=== PATIENT | male | born 1940 | race Caucasian/White ===

== ENCOUNTER → 2016-11-29 | Outpatient (CLI) | payer MEDICARE ==
--- NOTE | 2016-11-29 13:57 | XR ---
EXAMINATION TYPE: XR chest 2V DATE OF EXAM: 11/29/2016 1:52 PM COMPARISON: Prior chest x-ray February 28, 2016 HISTORY: Hypercalcemia per order. TECHNIQUE: Frontal and lateral views of the chest are obtained. FINDINGS: There is no focal air space opacity, pleural effusion, or pneumothorax seen. Underlying em physematous change is not excluded. The cardiac silhouette size is stable and mildly enlarged with du al lead pacemaker and atherosclerotic thoracic aorta redemonstrated. The osseous structures are int act. IMPRESSION: Mild cardiomegaly without acute pulmonary process. No significant change from prior.
[2016-11-30 11:42] LABS: Free Kappa Lt Chain Qnt, Serum 14.03 mg/dL (0.33 - 1.94); Kappa/Lambda Light Chain Ratio 1.5 (0.26 - 1.65)
[2016-11-30 16:15] LABS: Mis test requested (Non-blood) Urine Protein Electr
== END | disposition home or self-care (01) ==
LOC: LABWHC1 13:15
PROVIDERS: ATTEND Internal Medicine
DX: I51.7 Cardiomegaly (principal); E83.52 Hypercalcemia
CPT/HCPCS: 36415; 71020; 82652; 83883; 84165; 84166; 86335

== ENCOUNTER → 2017-03-06 | Outpatient (CLI) | payer MEDICARE ==
--- NOTE | 2017-03-06 14:29 | NM ---
EXAMINATION TYPE: NM parathyroid w/spect DATE OF EXAM: 03/06/2017 1:52 PM COMPARISON: NONE HISTORY: Hypercalemia E83.52 TECHNIQUE: Following administration of 26 mCi Tc99m Sestamibi. Anterior projection images of the neck and chest were obtained 10 minutes and 3 hours post injection. SPECT images of the neck and chest were obtaine d and reconstructed in three axes. FINDINGS: Thyroid tracer washout: Delayed images demonstrate near-complete tracer washout from the thyroid. Parathyroid uptake: None. The two-hour delayed images do not demonstrate any focal abnormal persisten t uptake in the region of the parathyroid glands to suggest parathyroid adenoma. Normal uptake: There is physiological tracer uptake in the myocardium, liver, salivary glands, and th yroid gland. IMPRESSION: Normal parathyroid imaging study. No evidence for mediastinal uptake to suggest mediastinal parathyro id adenoma
== END | disposition home or self-care (01) ==
LOC: RADNMMAIN 07:10
PROVIDERS: ATTEND Internal Medicine
DX: E83.52 Hypercalcemia (principal)
CPT/HCPCS: 78071; A9500

== ENCOUNTER 2018-10-19 11:08 | Emergency (ER) | payer MEDICARE ==
[2018-10-19] MEDS ORDERED: SODIUM CHLORIDE 0.9% 1,000 ML IV STA (11:11)
[2018-10-19 11:24] VITALS: TEMP 96.9
[2018-10-19 12:07] LABS: Basophils % (A) 1 %; Eosinophils # (A) 0.2 k/uL (0-0.7); Eosinophils % (A) 3 %; HCT 32.3 % (39.0-53.0); HGB 10.6 gm/dL (13.0-17.5); Lymphocytes # (A) 1.4 k/uL (1.0-4.8); Lymphocytes % (A) 23 %; MCH 31.6 pg (25.0-35.0); MCHC 32.8 g/dL (31.0-37.0); MCV 96.2 fL (80.0-100.0); Monocytes # (A) 0.4 k/uL (0-1.0); Monocytes % (A) 7 %; Neutrophils # (A) 3.8 k/uL (1.3-7.7); Neutrophils % (A) 64 %; Platelet Count 208 k/uL (150-450); RBC 3.35 m/uL (4.30-5.90); RDW 15.1 % (11.5-15.5)
--- NOTE | 2018-10-19 12:11 | ED ---
Syncope HPI - General Chief Complaint: Fall Stated Complaint: Syncope Time Seen by Provider: 10/19/18 11:10 Source: patient, EMS, RN notes reviewed, old records reviewed Mode of arrival: EMS Limitations: physical limitation - History of Present Illness Initial Comments: This is a 77-year-old male the ER for evaluation today. Patient presents today for evaluation of syncopal event and fall. A she got up from eating breakfast after drinking some coffee also pain in the back of his neck fell forward and hit his head. Patient does have laceration above left eyebrow did have positive loss of consciousness, denies any headache chest pain abdominal pain or shortness of breath currently. Denies any hip pain or extremity pain. Patient has had multiple shows a syncope event was recently related to medication but has been persistent multiple times with no known cause MD Complaint: loss of consciousness, collapsed -: hour(s) (1) Prodromal Symptoms: lightheaded -: second(s) Witnessed: yes - by bystander Injuries Sustained Associated with Event: Face (laceration) Current Symptoms: none History: previous syncopal episode Context: standing up Treatments Prior to Arrival: none - Related Data Home Medications Medication Instructions Recorded Confirmed ALPRAZolam [Xanax] 0.5 mg PO DAILY PRN 10/19/18 10/19/18 Allopurinol [Zyloprim] 100 mg PO DAILY 10/19/18 10/19/18 Cholecalciferol (Vitamin D3) 2,000 unit PO DAILY 10/19/18 10/19/18 [Vitamin D3] Cinacalcet HCl [Sensipar] 60 mg PO DAILY 10/19/18 10/19/18 Colchicine [Colcrys] 0.6 mg PO DAILY PRN 10/19/18 10/19/18 Dicyclomine [Bentyl] 10 mg PO BID 10/19/18 10/19/18 Isosorbide Mononitrate [Isosorbide 15 mg PO DAILY 10/19/18 10/19/18 Mononitrate ER] Melatonin 5 mg PO HS PRN 10/19/18 10/19/18 Omeprazole 20 mg PO BID 10/19/18 10/19/18 Prorenal Vitamin 1 tab PO DAILY 10/19/18 10/19/18 Sevelamer [Renvela] 800 mg PO AC-TID 10/19/18 10/19/18 Sodium Bicarbonate Tab 650 mg PO DAILY 10/19/18 10/19/18 Warfarin Sodium 4 mg PO MOWEFR 10/19/18 10/19/18 Zolpidem [Ambien] 10 mg PO HS PRN 10/19/18 10/19/18 amLODIPine [Norvasc] 5 mg PO BID 10/19/18 10/19/18 hydrALAZINE HCL [Apresoline] 75 mg PO BID 10/19/18 10/19/18 Allergies Allergy/AdvReac Type Severity Reaction Status Date / Time No Known Allergies Allergy Verified 10/19/18 12:53 Review of Systems ROS Statement: Those systems with pertinent positive or pertinent negative responses have been documented in the HPI. ROS Other: All systems not noted in ROS Statement are negative. Past Medical History Past Medical History: Dialysis History of Any Multi-Drug Resistant Organisms: None Reported Past Psychological History: Anxiety Smoking Status: Never smoker Past Alcohol Use History: None Reported Past Drug Use History: None Reported General Exam Limitations: physical limitation General appearance: alert, in no apparent distress Head exam: Present: normocephalic, normal inspection. Absent: atraumatic (3 cm laceration forehear L) Eye exam: Present: normal appearance, PERRL, EOMI. Absent: scleral icterus, conjunctival injection, periorbital swelling ENT exam: Present: normal exam, mucous membranes moist Neck exam: Present: normal inspection. Absent: tenderness, meningismus, lymphadenopathy Respiratory exam: Present: normal lung sounds bilaterally. Absent: respiratory distress, wheezes, rales, rhonchi, stridor Cardiovascular Exam: Present: regular rate, normal rhythm, normal heart sounds. Absent: systolic murmur, diastolic murmur, rubs, gallop, clicks GI/Abdominal exam: Present: soft, normal bowel sounds. Absent: distended, tenderness, guarding, rebound, rigid Extremities exam: Present: normal inspection, full ROM, normal capillary refill. Absent: tenderness, pedal edema, joint swelling, calf tenderness Back exam: Present: normal inspection Neurological exam: Present: alert, oriented X3, CN II-XII intact Psychiatric exam: Present: normal affect, normal mood Skin exam: Present: warm, dry, intact, normal color. Absent: rash Course Vital Signs 10/19/18 10/19/18 11:20 15:03 Temperature 96.9 F L Pulse Rate 65 52 L Respiratory 17 18 Rate Blood Pressure 118/56 132/54 O2 Sat by Pulse 100 100 Oximetry - Reevaluation(s) Reevaluation #1: 10/19/18 16:33 Medical record is reviewed Reevaluation #2: 10/19/18 16:33 Patient remains awake and alert throughout emergency room stay no headache chest pain or shortness of breath. Reevaluation #3: 10/19/18 16:33 Patient is able to ambulate without significant difficulty Reevaluation #4: 10/19/18 16:33 Patient at length with the family, they state that this patient has had multiple episodes that are similar, at least twice prior unsure of cause, they did think was medication related at one time he stopped taking Neurontin but seems a few events or persisting EKG Findings - EKG Comments: EKG Findings:: EKG shows paced rhythm rate of 55, QRS 90, QTc 558 Medical Decision Making - Medical Decision Making 77 male the ER with syncopal event fall sustaining a laceration and no other injury noted. Medical record is reviewed. Labwork is normal CT is her normal laceration is repaired and patient is okay for discharge - Lab Data Result diagrams: 10/19/18 11:27 10/19/18 11:27 Lab Results 10/19/18 10/19/18 10/19/18 Range/Units 11:27 11:27 11:27 WBC 6.0 (3.8-10.6) k/uL RBC 3.35 L (4.30-5.90) m/uL Hgb 10.6 L (13.0-17.5) gm/dL Hct 32.3 L (39.0-53.0) % MCV 96.2 (80.0-100.0) fL MCH 31.6 (25.0-35.0) pg MCHC 32.8 (31.0-37.0) g/dL RDW 15.1 (11.5-15.5) % Plt Count 208 (150-450) k/uL Neutrophils % 64 % Lymphocytes % 23 % Monocytes % 7 % Eosinophils % 3 % Basophils % 1 % Neutrophils # 3.8 (1.3-7.7) k/uL Lymphocytes # 1.4 (1.0-4.8) k/uL Monocytes # 0.4 (0-1.0) k/uL Eosinophils # 0.2 (0-0.7) k/uL Basophils # 0.0 (0-0.2) k/uL Sodium 139 (137-145) mmol/L Potassium 4.4 (3.5-5.1) mmol/L Chloride 98 (98-107) mmol/L Carbon Dioxide 24 (22-30) mmol/L Anion Gap 17 mmol/L BUN 36 H (9-20) mg/dL Creatinine 6.49 H (0.66-1.25) mg/dL Est GFR (CKD-EPI)AfAm 9 (>60 ml/min/1.73 sqM) Est GFR (CKD-EPI)NonAf 7 (>60 ml/min/1.73 sqM) Glucose 164 H (74-99) mg/dL Calcium 8.7 (8.4-10.2) mg/dL Phosphorus 3.6 (2.5-4.5) mg/dL Magnesium 2.3 (1.6-2.3) mg/dL Total Bilirubin 0.7 (0.2-1.3) mg/dL AST 19 (17-59) U/L ALT 18 L (21-72) U/L Alkaline Phosphatase 122 (38-126) U/L Total Creatine Kinase 63 (55-170) U/L CK-MB (CK-2) 1.1 (0.0-2.4) ng/mL CK-MB (CK-2) Rel Index 1.7 Troponin I 0.045 H* (0.000-0.034) ng/mL Total Protein 7.1 (6.3-8.2) g/dL Albumin 4.2 (3.5-5.0) g/dL - Radiology Data Radiology results: report reviewed (CT brain C-spine chest and pelvis x-ray are negative for acute disease), image reviewed Disposition Clinical Impression: Fall, Syncope, Laceration of head Disposition: HOME SELF-CARE Condition: Good Instructions: Laceration (ED), Syncope (ED) Is patient prescribed a controlled substance at d/c from ED?: No Referrals: Pernell Forman MD [Primary Care Provider] - 1-2 days
[2018-10-19 12:21] LABS: Albumin 4.2 g/dL (3.5-5.0); Calcium 8.7 mg/dL (8.4-10.2); Magnesium 2.3 mg/dL (1.6-2.3); Phosphorus 3.6 mg/dL (2.5-4.5); Potassium 4.4 mmol/L (3.5-5.1); Total Bilirubin 0.7 mg/dL (0.2-1.3); Total Protein 7.1 g/dL (6.3-8.2)
[2018-10-19 12:47] LABS: Creatine Kinase MB 1.1 ng/mL (0.0-2.4)
[2018-10-19 12:59] LABS: Troponin I 0.045 ng/mL (0.000-0.034)
--- NOTE | 2018-10-19 13:40 | CT ---
EXAMINATION TYPE: CT brain alisha arias DATE OF EXAM: 10/19/2018 COMPARISON: NONE HISTORY: Fall, Lt eye swelling CT DLP: 927.7 mGycm Automated exposure control for dose reduction was used. TECHNIQUE: CT scan of the head and cervical spine are performed without contrast. FINDINGS: BRAIN: There are mild changes of sulcal prominence and ventriculomegaly, compatible with mild atrophi c change. There is mild, periventricular white matter lucency, compatible with mild, chronic ischemic change. There is no acute focal lesion, mass effect or midline shift identified. I do not see eviden ce of intracranial blood. There is soft tissue swelling in the supraorbital area on the left. Visualized portions of the paranasal sinuses and mastoids are clear. The bony calvarium is intact. IMPRESSION: 1. NO ACUTE INTRACRANIAL ABNORMALITY. 2. MILD DEGENERATIVE CHANGE. 3. SUPRAORBITAL SWELLING ON THE LEFT. CERVICAL SPINE: There are mild emphysematous changes within the lungs. Prevertebral soft tissues are normal. Vertebral body height and alignment are maintained. Atlantoaxial relationships are normal. There is degenerative disc disease throughout the cervical region with relative sparing of the C2-3 l evel. There is diffuse uncovertebral joint disease. There is mild, diffuse facet arthropathy most mar ked on the right at C5-6. There is pseudocystic change in the superior endplate of C3 and T1. There i s irregular disc space loss at C5-6. The facet changes are somewhat irregular. This may reflect infla mmatory arthritis. No discal protrusions are seen. No fractures are identified. IMPRESSION: 1. NO ACUTE OSSEOUS LESION. 2. DEGENERATIVE CHANGE AND ALSO FINDINGS SUGGESTIVE OF OLD INFLAMMATORY ARTHRITIS.
--- NOTE | 2018-10-19 13:43 | CT ---
EXAMINATION TYPE: CT facial bones wo con DATE OF EXAM: 10/19/2018 COMPARISON: None. HISTORY: Fall, Lt eye swelling CT DLP: 927.7 mGycm Automated exposure control for dose reduction was used. TECHNIQUE: CT scan of the sinuses is performed without contrast, axial images are obtained, coronal r eformatted images are also reviewed. FINDINGS: There is soft tissue swelling over the supraorbital area on the left. No orbital fracture i s seen. There is mild mucoperiosteal thickening involving the left frontal sinus. Visualized portions of the paranasal sinuses and mastoids are otherwise clear. The zygomatic arches are intact. The pterygoid plates are intact. The greenwood of the maxillary sinuses are intact. No nasal fracture is seen. IMPRESSION: 1. NO ACUTE OSSEOUS LESION. 2. LEFT SUPRAORBITAL SWELLING. 3. MILD MUCOSAL DISEASE INVOLVING THE LEFT FRONTAL SINUS.
[2018-10-19] MEDS ORDERED: MORPHINE SULFATE 4 MG/ML SYRINGE IVP PRN (14:11)
[2018-10-19 15:05] VITALS: BP 132/54; PULSE 52; RESP 18
--- NOTE | 2018-10-19 15:07 | XR ---
EXAMINATION TYPE: XR chest 1V DATE OF EXAM: 10/19/2018 COMPARISON: Prior chest x-ray 11/29/2017 HISTORY: Trauma, pain TECHNIQUE frontal view of the chest is obtained on 2 images. FINDINGS: There is no focal air space opacity, pleural effusion, or pneumothorax seen. The cardiac silhouette size is stable and enlarged. The osseous structures are intact. There are overlying card iac leads. Generator in the left pectoral region shows stable appearance, there are leads in the righ t atrium and ventricle IMPRESSION: No acute process.
--- NOTE | 2018-10-19 15:09 | XR ---
AP pelvis HISTORY: Trauma and pain Single frontal view of the pelvis is submitted. Bone mineralization, joint spaces and alignment are maintained. There are vascular calcifications wit hin the pelvis. Question artifact overlying the right L5 transverse process, correlate for overlying device. Degenerative disc changes in the visualized spine are suspected. Serpiginous calcification in the right lower quadrant may be vascular. IMPRESSION: No acute fracture is evident. Additional findings above.
== END 2018-10-19 16:30 | disposition home or self-care (01) ==
LOC: EC 11:08
DX: S01.81XA Laceration without foreign body of other part of head, initial encounter (principal); R55 Syncope and collapse; R42 Dizziness and giddiness; F41.9 Anxiety disorder, unspecified; Z79.01 Long term (current) use of anticoagulants; Z79.899 Other long term (current) drug therapy; Z99.2 Dependence on renal dialysis; W18.00XA Striking against unspecified object with subsequent fall, initial encounter; Y93.01 Activity, walking, marching and hiking; Y92.009 Unspecified place in unspecified non-institutional (private) residence as the place of occurrence of the external cause
CPT/HCPCS: 36415; 93005; 80053; 82550; 82553; 83735; 84100; 84484; 85025; 72170; 71045; 72125; 70486; 70450; 99285; 96374; 96361; J2270

== ENCOUNTER → 2018-10-22 | Outpatient (CLI) | payer MEDICARE ==
--- NOTE | 2018-10-22 13:33 | US ---
EXAMINATION TYPE: US carotid duplex BILAT DATE OF EXAM: 10/22/2018 COMPARISON: NONE CLINICAL HISTORY: R55 SYNCOPE AND COLLAPSE. Two episodes where he passed out at home EXAM MEASUREMENTS: RIGHT: Peak Systolic Velocity (PSV) cm/sec ----- Right CCA: 166.1 ----- Right ICA: 158.6 ----- Right ECA: 264.8 ICA/CCA ratio: 1.0 RIGHT: End Diastole cm/sec ----- Right CCA: 10.0 ----- Right ICA: 24.8 ----- Right ECA: 15.8 LEFT: Peak Systolic Velocity (PSV) cm/sec ----- Left CCA: 188.0 ----- Left ICA: 139.2 ----- Left ECA: 177.5 ICA/CCA ratio: 0.7 LEFT: End Diastole cm/sec ----- Left CCA: 9.1 ----- Left ICA: 18.4 ----- Left ECA: 0.0 VERTEBRALS (direction of flow): Right Vertebral: Antegrade Left Vertebral: Antegrade Rhythm: Normal Moderate amount of plaque visualized bilateral bulbs. Elevated velocities visualized right mid and di stal CCA, right distal ICA, right ECA, left prox, mid, and distal CCA, left mid ICA, left distal ICA, left bulb, left ECA. Moderate to severe peripheral plaque is seen in bilateral carotid bulbs increased peak systolic veloc ities are seen in bilateral common carotid arteries. Ratios remain within normal limits but elevated velocities noted in bilateral internal/external carotid arteries. IMPRESSION: Moderate to severe atherosclerotic change bilaterally, cannot exclude hemodynamically si gnificant stenosis. Advise further investigation with CTA of the neck. Criteria for Assigning % of Stenosis / Diameter reduction (Estimation based on the indirect measurements of the internal carotid artery velocities (ICA PSV). 1. Normal (no stenosis)=ICA PSV < 125 cm/s: ratio < 2.0: ICA EDV<40 cm/s. 2. Less than 50% stenosis=ICA PSV < 125 cm/s: ratio < 2.0: ICA EDV<40 cm/s. 3. 50 to 69% stenosis=ICA PSV of 125 to 230 cm/s: ration 2.0 ? 4.0: ICA EDV 40-100 cm/s. 4. Greater than 70% stenosis to near occlusion= ICA PSV > 230 cm/s: ratio > 4.0: ICA EDV > 100 cm/s. 5. Near occlusion= ICA PSV velocities may be low or undetectable: variable ratio and ICA EDV. 6. Total occlusion=unable to detect flow.
== END | disposition home or self-care (01) ==
LOC: RADUSWWP 11:42
PROVIDERS: ATTEND Internal Medicine Geriatric Medicine
DX: I65.23 Occlusion and stenosis of bilateral carotid arteries (principal)
CPT/HCPCS: 93880

== ENCOUNTER 2018-11-14 11:45 | Day surgery (SDC) | payer MEDICARE ==
[2018-11-07 15:10] VITALS: BMI 23.7
[~2018-11-14 11:45] MED LIST: SODIUM CHLORIDE 0.9% 1,000 ML IV SCH
[2018-11-14 12:38] VITALS: BP 153/86; PULSE 75; RESP 18; TEMP 97.9
[2018-11-14 12:57] LABS: INR 1.1 (<1.2); Prothrombin Time 11.5 sec (9.0-12.0)
--- NOTE | 2018-11-14 16:08 | P.PCN ---
Preoperative Diagnosis: Diagnosis Recurrent syncope Twelve-lead ECG shows ventricular paced rhythm, underlying atrial fibrillation Tilt table test Baseline blood pressure 132/59 mmHg Baseline heart rate is 60 beats a minute patient was tilted upright at night was 70 per protocol there was no significant change in his heart rate a blood pressure and he was laid supine at the end of the procedure Impression Ventricular paced rhythm with underlying atrial fibrillation Normal blood pressure response to upright tilting
== END 2018-11-14 14:38 | disposition home or self-care (01) ==
LOC: CATHEP 11:45
PROVIDERS: ATTEND Internal Medicine Clinical Cardiac Electrophysiology
DX: R55 Syncope and collapse (principal); I48.2 Chronic atrial fibrillation; I10 Essential (primary) hypertension; E11.22 Type 2 diabetes mellitus with diabetic chronic kidney disease; I12.0 Hypertensive chronic kidney disease with stage 5 chronic kidney disease or end stage renal disease; N18.5 Chronic kidney disease, stage 5; Z99.2 Dependence on renal dialysis; E78.5 Hyperlipidemia, unspecified; Z95.0 Presence of cardiac pacemaker; Z79.01 Long term (current) use of anticoagulants; Z79.890 Hormone replacement therapy; Z79.899 Other long term (current) drug therapy; Z88.8 Allergy status to other drugs, medicaments and biological substances
CPT/HCPCS: 82533; 84443; 85610; 93660

== ENCOUNTER → 2018-11-21 | Outpatient (CLI) | payer MEDICARE ==
--- NOTE | 2018-11-21 19:21 | CT ---
EXAMINATION TYPE: CT angio neck DATE OF EXAM: 11/21/2018 HISTORY: Carotid stenosis COMPARISON: Ultrasound 10/22/2018 CT DLP: 300 mGycm. Automated Exposure Control for Dose Reduction was Utilized. TECHNIQUE: CTA scan of the neck is performed, patient injected with 65 mL of Isovue 370, axial image s are obtained, coronal and sagittal reformatted images are reviewed. Three-D reconstructed images ar e created on an independent workstation and reviewed. FINDINGS: Hypertrophic and degenerative change of the vertebral column. Shotty adenopathy in the soft tissues of the neck bilaterally Atherosclerotic change aorta with standard three-vessel anatomy. There is atherosclerotic plaque at t he origin of the vertebral arteries bilaterally. Mild atherosclerotic plaque involving the brachiocephalic and proximal right and left subclavian pilar [place]. Right common carotid artery is widely patent there is mild atherosclerotic plaque involving the carot id bifurcation. No significant hemodynamic stenosis. There is mild atherosclerotic plaque involving the left carotid bifurcation. There is no significant hemodynamic stenosis. Common carotid arteries are patent with mild atherosclerotic plaque at its orig in. Visualized lung apices demonstrate the lungs to be clear. Apical pleural thickening noted. Subcentime ter left thyroid nodule incidentally noted multilevel facet arthropathy noted with suspected multilev el foraminal encroachment and uncovertebral joint hypertrophy. Visualized portion of the vertebral artery is patent. Left vertebral artery slightly dominant. IMPRESSION: 1. Mild atherosclerotic plaque involving the carotid bifurcation bilaterally with no significant hemo dynamic stenosis.
== END | disposition home or self-care (01) ==
LOC: RADCTMAIN 15:52
PROVIDERS: ATTEND Surgery
DX: I65.23 Occlusion and stenosis of bilateral carotid arteries (principal)
CPT/HCPCS: 82565; 84520; 70498; 36415; Q9967

== ENCOUNTER → 2019-01-16 | Outpatient (CLI) | payer OTHER, MEDICARE ==
--- NOTE | 2019-01-16 15:23 | XR ---
EXAMINATION TYPE: XR chest 2V DATE OF EXAM: 01/16/2019 COMPARISON: 10/19/2018 HISTORY: Shortness of breath TECHNIQUE: Frontal and lateral views of the chest are obtained. FINDINGS: There is interval development of a small left pleural effusion and left basilar airspace d isease. Pulmonary hyperinflation and flattening of the right hemidiaphragm relate to underlying COPD. There is partial obscuration of the previously noted enlarged cardiac mediastinal silhouette with mu ltilead left-sided cardiac device. Mild multilevel degenerative changes of the spine are noted. IMPRESSION: New small left pleural effusion and left basilar airspace disease, likely compressive at electasis although developing pneumonia with parapneumonic effusion are possible in the appropriate c linical setting.
== END | disposition home or self-care (01) ==
LOC: RADXRMAIN 14:59
PROVIDERS: ATTEND Nurse Practitioner Family
DX: J90 Pleural effusion, not elsewhere classified (principal)
CPT/HCPCS: 71046

== ENCOUNTER 2019-06-03 10:29 | Inpatient (IN) | payer MEDICARE ==
--- NOTE | 2019-06-03 11:05 | ED ---
SOB HPI - General Source: patient, RN notes reviewed Mode of arrival: wheelchair Limitations: no limitations <Rahul Cole - Last Filed: 06/03/19 14:37> <Vinicio Fodre - Last Filed: 06/03/19 14:57> - General Chief Complaint: Shortness of Breath Stated Complaint: SOB, low BP Time Seen by Provider: 06/03/19 10:39 - History of Present Illness Initial Comments: 78-year-old male presents emergency Department with chief complaint of shortness of breath. Patient states he's had increasing fatigue and shortness of breath. Patient states he was unable to barely walk down his 60 for driving back today because he became so weak and short of breath. Patient is on dialysis secondary to diabetes causing his renal failure. Patient went to dialysis yesterday which was normal for him. Patient has no history of congestive heart failure. Patient states he is approximately one year status post cardiac arrest. Patient has no history of COPD. Patient denies any fever or chills no URI symptoms. Patient states his symptoms are improved at rest (Rahul Cole) - Related Data Home Medications Medication Instructions Recorded Confirmed Omeprazole 20 mg PO DAILY 10/19/18 06/03/19 Apixaban [Eliquis] 2.5 mg PO BID 06/03/19 06/03/19 Aspirin EC [Ecotrin Low Dose] 81 mg PO DAILY 06/03/19 06/03/19 Calcium Acetate [Phoslo] 1,334 mg PO QAM 06/03/19 06/03/19 Calcium Acetate [Phoslo] 667 mg PO BID 06/03/19 06/03/19 Cinacalcet HCl [Sensipar] 60 mg PO 06/03/19 06/03/19 Fludrocortisone [Florinef] 0.05 mg PO DAILY 06/03/19 06/03/19 Metoprolol Succinate [Toprol Xl] 50 mg PO QAM 06/03/19 06/03/19 Metoprolol Succinate [Toprol Xl] 100 mg PO HS 06/03/19 06/03/19 Pravastatin Sodium [Pravachol] 20 mg PO 06/03/19 06/03/19 Renal Vitamin 1 tab PO 06/03/19 06/03/19 Allergies Allergy/AdvReac Type Severity Reaction Status Date / Time No Known Allergies Allergy Verified 06/03/19 11:03 Review of Systems ROS Other: All systems not noted in ROS Statement are negative. <DouglasRahul Gary - Last Filed: 06/03/19 14:37> ROS Other: All systems not noted in ROS Statement are negative. <Vinicio oFrde - Last Filed: 06/03/19 14:57> ROS Statement: Those systems with pertinent positive or pertinent negative responses have been documented in the HPI. Past Medical History Past Medical History: Atrial Fibrillation, Diabetes Mellitus, Dialysis, Hypertension, Renal Disease, Skin Disorder, Syncope Additional Past Medical History / Comment(s): CMP, HAS PACEMAKER. NO RX FOR DM NOW. HEMODIALYSIS VIA FISTULA, MON, WED, FRI. SKIN TEARS EASILY. 10/19/18 TO EC R/T SYNCOPAL EPISODE, INJURY/LACERATION TO HEAD. SEE DR SANDHU'S H&P. History of Any Multi-Drug Resistant Organisms: None Reported Past Surgical History: Pacemaker Additional Past Surgical History / Comment(s): 2 ABD SURGERIES R/T INJ. PACEMAKER MEDTRON[employer]. FISTULA. Past Anesthesia/Blood Transfusion Reactions: No Reported Reaction Type of Cardiac Device: Permanent Pacemaker Device Placement Date:: 10/10/12 Past Psychological History: Anxiety Smoking Status: Never smoker - Past Family History Mother Family Medical History: Cancer Father Family Medical History: Cancer <DouglasRahul Vega - Last Filed: 06/03/19 14:37> General Exam Limitations: no limitations General appearance: alert, in no apparent distress Head exam: Present: atraumatic, normocephalic, normal inspection Eye exam: Present: normal appearance, PERRL, EOMI. Absent: scleral icterus, conjunctival injection, periorbital swelling ENT exam: Present: normal exam, normal oropharynx, mucous membranes moist, TM's normal bilaterally, normal external ear exam Neck exam: Present: normal inspection, full ROM. Absent: tenderness, meningismus, lymphadenopathy Respiratory exam: Present: normal lung sounds bilaterally. Absent: respiratory distress, wheezes, rales, rhonchi, stridor Cardiovascular Exam: Present: regular rate, normal rhythm, normal heart sounds. Absent: systolic murmur, diastolic murmur, rubs, gallop, clicks GI/Abdominal exam: Present: soft, normal bowel sounds. Absent: distended, tenderness, guarding, rebound, rigid Neurological exam: Present: alert, oriented X3, CN II-XII intact, reflexes normal. Absent: motor sensory deficit Skin exam: Present: warm, dry, intact, normal color. Absent: rash <Rahul Cole - Last Filed: 06/03/19 14:37> Course <Vinicio Forde - Last Filed: 06/03/19 14:57> Vital Signs 06/03/19 06/03/19 10:33 12:34 Temperature 97.4 F L 98.6 F Pulse Rate 65 60 Respiratory 20 18 Rate Blood Pressure 112/65 107/49 O2 Sat by Pulse 93 L 98 Oximetry - Reevaluation(s) Reevaluation #1: 06/03/19 14:56 PA supervision: I proceeded [id number] evaluation patient he does demonstrate evidence of CHF and left pleural effusion. I did discuss case with Dr. Velasco. Patient will be admitted with consultation by Dr. Thompson as well as Dr. Clinton and cardiology (Vinicio Forde) Medical Decision Making - Lab Data Result diagrams: 06/03/19 12:40 06/03/19 12:40 <Rahul Cole - Last Filed: 06/03/19 14:37> - Lab Data Result diagrams: 06/03/19 12:40 06/03/19 12:40 <Vinicio Forde - Last Filed: 06/03/19 14:57> - Medical Decision Making 78-year-old male present for exertional dyspnea. Patient's found to have a moderate to large left-sided pleural effusion. Patient becomes extremely dyspneic with any ambulation. Patient's troponin is elevated though is most likely related to his renal failure. Patient will be admitted for possible thoracentesis and further evaluation and treatment. (Rahul Cole) - Lab Data Lab Results 06/03/19 06/03/19 06/03/19 Range/Units 12:40 12:40 12:40 WBC 7.9 (3.8-10.6) k/uL RBC 3.20 L (4.30-5.90) m/uL Hgb 9.4 L (13.0-17.5) gm/dL Hct 29.5 L (39.0-53.0) % MCV 92.2 (80.0-100.0) fL MCH 29.4 (25.0-35.0) pg MCHC 31.9 (31.0-37.0) g/dL RDW 15.7 H (11.5-15.5) % Plt Count 274 (150-450) k/uL Neutrophils % 72 % Lymphocytes % 17 % Monocytes % 6 % Eosinophils % 1 % Basophils % 1 % Neutrophils # 5.7 (1.3-7.7) k/uL Lymphocytes # 1.4 (1.0-4.8) k/uL Monocytes # 0.5 (0-1.0) k/uL Eosinophils # 0.1 (0-0.7) k/uL Basophils # 0.0 (0-0.2) k/uL PT (9.0-12.0) sec INR (<1.2) APTT (22.0-30.0) sec Sodium 141 (137-145) mmol/L Potassium 3.8 (3.5-5.1) mmol/L Chloride 96 L (98-107) mmol/L Carbon Dioxide 32 H (22-30) mmol/L Anion Gap 13 mmol/L BUN 38 H (9-20) mg/dL Creatinine 6.27 H (0.66-1.25) mg/dL Est GFR (CKD-EPI)AfAm 9 (>60 ml/min/1.73 sqM) Est GFR (CKD-EPI)NonAf 8 (>60 ml/min/1.73 sqM) Glucose 143 H (74-99) mg/dL Calcium 8.1 L (8.4-10.2) mg/dL Magnesium 2.2 (1.6-2.3) mg/dL Total Bilirubin 0.7 (0.2-1.3) mg/dL AST 14 L (17-59) U/L ALT 13 L (21-72) U/L Alkaline Phosphatase 89 (38-126) U/L Troponin I (0.000-0.034) ng/mL NT-Pro-B Natriuret Pep 62441 pg/mL Total Protein 6.7 (6.3-8.2) g/dL Albumin 3.8 (3.5-5.0) g/dL 06/03/19 06/03/19 Range/Units 12:40 12:40 WBC (3.8-10.6) k/uL RBC (4.30-5.90) m/uL Hgb (13.0-17.5) gm/dL Hct (39.0-53.0) % MCV (80.0-100.0) fL MCH (25.0-35.0) pg MCHC (31.0-37.0) g/dL RDW (11.5-15.5) % Plt Count (150-450) k/uL Neutrophils % % Lymphocytes % % Monocytes % % Eosinophils % % Basophils % % Neutrophils # (1.3-7.7) k/uL Lymphocytes # (1.0-4.8) k/uL Monocytes # (0-1.0) k/uL Eosinophils # (0-0.7) k/uL Basophils # (0-0.2) k/uL PT 11.2 (9.0-12.0) sec INR 1.1 (<1.2) APTT 28.9 (22.0-30.0) sec Sodium (137-145) mmol/L Potassium (3.5-5.1) mmol/L Chloride (98-107) mmol/L Carbon Dioxide (22-30) mmol/L Anion Gap mmol/L BUN (9-20) mg/dL Creatinine (0.66-1.25) mg/dL Est GFR (CKD-EPI)AfAm (>60 ml/min/1.73 sqM) Est GFR (CKD-EPI)NonAf (>60 ml/min/1.73 sqM) Glucose (74-99) mg/dL Calcium (8.4-10.2) mg/dL Magnesium (1.6-2.3) mg/dL Total Bilirubin (0.2-1.3) mg/dL AST (17-59) U/L ALT (21-72) U/L Alkaline Phosphatase (38-126) U/L Troponin I 0.055 H* (0.000-0.034) ng/mL NT-Pro-B Natriuret Pep pg/mL Total Protein (6.3-8.2) g/dL Albumin (3.5-5.0) g/dL - EKG Data EKG Comments: EKG performed at 10:44 ventricular paced rhythm with a rate of 63 QRS 156 QT/QTC 504/515 (Rahul Cole) Disposition <Rahul Cole - Last Filed: 06/03/19 14:37> <Vinicio Forde - Last Filed: 06/03/19 14:57> Clinical Impression: Congestive heart failure, Exertional dyspnea, Pleural effusion Disposition: ADMITTED IP TO THIS [facility] Condition: Fair Referrals: Pernell Forman MD [Primary Care Provider] - 1-2 days
[2019-06-03 12:52] LABS: Basophils % (A) 1 %; Eosinophils # (A) 0.1 k/uL (0-0.7); Eosinophils % (A) 1 %; HCT 29.5 % (39.0-53.0); HGB 9.4 gm/dL (13.0-17.5); Lymphocytes # (A) 1.4 k/uL (1.0-4.8); Lymphocytes % (A) 17 %; MCH 29.4 pg (25.0-35.0); MCHC 31.9 g/dL (31.0-37.0); MCV 92.2 fL (80.0-100.0); Monocytes # (A) 0.5 k/uL (0-1.0); Monocytes % (A) 6 %; Neutrophils # (A) 5.7 k/uL (1.3-7.7); Neutrophils % (A) 72 %; Platelet Count 274 k/uL (150-450); RDW 15.7 % (11.5-15.5); WBC 7.9 k/uL (3.8-10.6)
[2019-06-03 13:02] LABS: INR 1.1 (<1.2); Partial Thromboplastin Time 28.9 sec (22.0-30.0); Prothrombin Time 11.2 sec (9.0-12.0)
--- NOTE | 2019-06-03 13:10 | XR ---
EXAMINATION TYPE: XR chest 2V DATE OF EXAM: 06/03/2019 COMPARISON: 01/16/2019 HISTORY: 78-year-old male difficulty breathing, shortness of breath TECHNIQUE: AP and lateral views FINDINGS: Left anterior chest wall pacemaker generator with right atrial to right ventricular leads. Left heart margin obscured by adjacent pleural parenchymal opacity. Increasing, now moderate-sized left pleural effusion. Trace right effusion is suggested on the lateral radiograph. IMPRESSION: Increasing, now moderate left pleural effusion with adjacent atelectasis and/or consolidation. Correl ate as to etiology.
[2019-06-03 13:11] LABS: Albumin 3.8 g/dL (3.5-5.0); Calcium 8.1 mg/dL (8.4-10.2); Magnesium 2.2 mg/dL (1.6-2.3); Potassium 3.8 mmol/L (3.5-5.1); Total Bilirubin 0.7 mg/dL (0.2-1.3); Total Protein 6.7 g/dL (6.3-8.2)
[2019-06-03] MEDS ORDERED: FUROSEMIDE 10 MG/ML 4 ML VIAL IV STA (14:37)
[2019-06-03] MEDS: PRAVASTATIN SODIUM 20 MG TAB PO SCH (20:22)
[2019-06-03] MEDS: CINACALCET 30 MG TAB PO SCH (20:22)
[2019-06-03] MEDS: METOPROLOL SUCCINATE (ER) 100 MG TAB.ER.24H PO SCH (20:22)
[2019-06-03] MEDS: FOLIC ACID-VIT B COMPLEX-VIT C 1 CAP PO SCH (20:22)
[2019-06-03] MEDS: APIXABAN 2.5 MG TABLET PO SCH (20:22)
[2019-06-03] MEDS: ALPRAZolam 0.5 MG TAB PO PRN (22:56)
[2019-06-04] MEDS: PANTOPRAZOLE 40 MG TABLET PO SCH (06:49)
[2019-06-04] MEDS: CALCIUM ACETATE 667 MG CAP PO SCH ×3 (06:49→16:15)
[2019-06-04 07:53] LABS: Basophils # (A) 0.1 k/uL (0-0.2); Basophils % (A) 1 %; Eosinophils # (A) 0.2 k/uL (0-0.7); Eosinophils % (A) 3 %; HCT 29.2 % (39.0-53.0); HGB 9.5 gm/dL (13.0-17.5); Lymphocytes # (A) 1.8 k/uL (1.0-4.8); Lymphocytes % (A) 25 %; MCHC 32.6 g/dL (31.0-37.0); MCV 91.9 fL (80.0-100.0); Mean Platelet Volume 6.6; Monocytes # (A) 0.4 k/uL (0-1.0); Monocytes % (A) 6 %; Neutrophils # (A) 4.4 k/uL (1.3-7.7); Neutrophils % (A) 63 %; Platelet Count 260 k/uL (150-450); RBC 3.17 m/uL (4.30-5.90); RDW 15.6 % (11.5-15.5)
[2019-06-04 08:09] LABS: Calcium 7.6 mg/dL (8.4-10.2); Potassium 4.2 mmol/L (3.5-5.1)
--- NOTE | 2019-06-04 09:10 | CONS ---
CONSULTATION CHIEF COMPLAINT: Shortness of breath. This is an 78-year-old gentleman with history of coronary artery disease, chronic renal failure on dialysis, diabetes, who presented to hospital complaining of shortness of breath with mild activity. It started gradually and got worse. He did not have any shortness of breath at rest, did not have any chest pain. When he came to the ER, he had a chest x-ray that showed left-sided pleural effusion and is currently being dialyzed. His symptoms have improved since. An EKG shows a normally functioning pacemaker. Chest x-ray showed moderate pleural effusion on the left side. His labs show that the BNP is elevated as is the troponin. His BNP is elevated at 44,900. PAST MEDICAL HISTORY: Significant for hypertension, atrial fibrillation, dyslipidemia, coronary artery disease. MEDICATIONS: Include Toprol 150 mg daily, Eliquis, Pravachol, Florinef, Sensipar, PhosLo, and aspirin. There are no known drug allergies. FAMILY HISTORY: Negative for premature coronary artery disease. SOCIAL HISTORY: Negative for smoking, EtOH abuse, or drug abuse. REVIEW OF SYSTEMS: HEENT is unremarkable. CARDIAC: As described above. RESPIRATORY: As described above. GI: Negative. GENITOURINARY: Significant for renal failure. PSYCHOSOCIAL: Negative. ENDOCRINE: Negative DERM: Negative. CONSTITUTIONAL: Negative. ONCOLOGICAL: Negative Rest of the system review is not relevant. PHYSICAL EXAM: Comfortable at rest. Vital signs are stable. Chest exam reveals diminished air entry at the left base. Heart exam reveals first and second heart sounds. Systolic murmur at the left lower sternal border. Abdomen is soft. Exam of extremities reveal trace edema. Peripheral pulses are felt. LABS: Show a hemoglobin of 9.5. Potassium is 4.2, creatinine is 7.4. EKG shows paced rhythm. ASSESSMENT: 1. Exertional shortness of breath secondary to pleural effusion. This is probably related to underlying renal failure. 2. End-stage renal disease on hemodialysis. 3. History of coronary artery disease. 4. Elevated BNP is probably related to acute onset congestive heart failure. PLAN: Continue the dialysis. I will obtain a 2D echo to evaluate his LV function and decide on further course of action. SHANNEN / KOKIN: [id number] /
--- NOTE | 2019-06-04 11:09 | P.NPCON ---
History of Present Illness - Reason for Consult end stage renal disease - History of Present Illness Reason for consultation: End-stage renal disease History of present illness: Patient is a 78-year-old male seen in renal consultation for end-stage renal disease. He is maintained on hemodialysis on a Sunday schedule. Patient presented to the hospital due to dyspnea. He did not miss a al hemodialysis treatments outpatient. Patient states over the last 1 week he's been getting progressively more short of breath even with minimal exertion. Yesterday he wasn't able to drive and the decided to bring him to the hospital. Patient's chest x-ray revealed left-sided pleural effusion. Currently seen was undergoing hemodialysis. Hemodynamically stable. No vomiting or diarrhea. Patient denies any bleeding. Hemoglobin stable at 9.5. Vital signs are stable. General: The patient appeared well nourished and normally developed. HEENT: Head exam is unremarkable. Neck is without jugular venous distension. LUNGS: Breath sounds decreased. HEART: Rate and Rhythm are regular. First and second heart sounds normal. No murmurs, rubs or gallops. ABDOMEN: Abdominal exam reveals normal bowel sounds. Non-tender and non- distended. No evidence of peritonitis. EXTREMITITES: No clubbing, cyanosis, or edema. Past Medical History Past Medical History: Atrial Fibrillation, Heart Failure, Diabetes Mellitus, Dialysis, Hypertension, Myocardial Infarction (AL), Renal Disease, Skin Disorder, Syncope Additional Past Medical History / Comment(s): CMP, HAS PACEMAKER. NO RX FOR DM NOW. HEMODIALYSIS VIA FISTULA, SUN, SUN, SUN. SKIN TEARS EASILY. 10/19/18 TO EC R/T SYNCOPAL EPISODE, INJURY/LACERATION TO HEAD. SEE DR SANDHU'S H&P. Last Myocardial Infarction Date:: 2017 History of Any Multi-Drug Resistant Organisms: None Reported Past Surgical History: Pacemaker Additional Past Surgical History / Comment(s): 2 ABD SURGERIES R/T INJ. PACEMAKER ICD [employer]. FISTULA. Patient has a Medtr[employer] ICD implanted November 2018 Past Anesthesia/Blood Transfusion Reactions: No Reported Reaction Type of Cardiac Device: Permanent Pacemaker Device Placement Date:: 10/10/12 Past Psychological History: Anxiety Smoking Status: Never smoker Past Alcohol Use History: None Reported Additional Past Alcohol Use History / Comment(s): She is a lifelong nonsmoker. No illicit drug use, no alcohol use. Past Drug Use History: None Reported - Past Family History Mother Family Medical History: Cancer Additional Family Medical History / Comment(s): Mother at age 67 from lung cancer. Father Family Medical History: Cancer Additional Family Medical History / Comment(s): Father at age 93 from old age. He was diagnosed with throat cancer at age 75. She does not have any brothers. Patient's 1 sister with no major medical problems. Patient has 3 sons and one daughter with no major medical problems. Medications and Allergies Home Medications Medication Instructions Recorded Confirmed Type Omeprazole 20 mg PO DAILY 10/19/18 06/03/19 History Apixaban [Eliquis] 2.5 mg PO BID 06/03/19 06/03/19 History Aspirin EC [Ecotrin Low Dose] 81 mg PO DAILY 06/03/19 06/03/19 History Calcium Acetate [Phoslo] 1,334 mg PO QA 06/03/19 06/03/19 History Calcium Acetate [Phoslo] 667 mg PO BID 06/03/19 06/03/19 History Cinacalcet HCl [Sensipar] 60 mg PO 06/03/19 06/03/19 History Fludrocortisone [Florinef] 0.05 mg PO DAILY 06/03/19 06/03/19 History Metoprolol Succinate [Toprol Xl] 50 mg PO [facility] 06/03/19 06/03/19 History Metoprolol Succinate [Toprol Xl] 100 mg PO 06/03/19 06/03/19 History Pravastatin Sodium [Pravachol] 20 mg PO 06/03/19 06/03/19 History Renal Vitamin 1 tab PO 06/03/19 06/03/19 History Allergies Allergy/AdvReac Type Severity Reaction Status Date / Time No Known Allergies Allergy Verified 06/03/19 11:03 Physical Exam Vitals: Vital Signs Temp Pulse Pulse Pulse Pulse Pulse Resp 06/04/19 08:00 60 06/04/19 07:05 98.7 F 60 06/04/19 04:00 62 17 06/03/19 23:47 63 17 06/03/19 23:27 98.2 F 63 06/03/19 20:00 98.2 F 65 06/03/19 17:30 98.4 F 60 06/03/19 16:46 97.9 F 60 18 06/03/19 15:30 22 06/03/19 15:18 61 59 L 60 16 06/03/19 15:10 18 06/03/19 15:04 97.6 F 60 16 06/03/19 12:34 98.6 F 60 18 BP BP BP BP Pulse Ox 06/04/19 08:00 06/04/19 07:05 120/58 100 06/04/19 04:00 115/56 95 06/03/19 23:47 06/03/19 23:27 113/55 95 06/03/19 20:00 121/48 95 06/03/19 17:30 131/52 97 06/03/19 16:46 121/54 100 06/03/19 15:30 06/03/19 15:18 121/55 112/46 129/57 06/03/19 15:10 06/03/19 15:04 118/52 100 06/03/19 12:34 107/49 98 Intake and Output 06/03/19 06/04/19 06/04/19 22:59 06:59 14:59 Intake Total 800 120 Balance 800 120 Intake: Oral 800 120 Other: Weight 74.6 kg Results - Lab Results Most recent lab results Calcium 7.6 mg/dL (8.4-10.2) L 06/04/19 07:00 Magnesium 2.2 mg/dL (1.6-2.3) 06/03/19 12:40 06/04/19 07:00 06/04/19 07:00 Assessment and Plan Plan: Assessment: 1. End-stage renal disease maintained on hemodialysis on a Sunday schedule. 2. Dyspnea secondary to fluid overload. 3. Anemia of chronic kidney disease. Rule out iron deficiency. 4. Chronic kidney disease mineral bone disease maintained on phosphate binders and Sensipar. 5. History of coronary artery disease. Plan: Currently seen while undergoing hemodialysis. Trying for 3 L ultrafiltration. Potential extra treatment tomorrow depending on his volume status. Check iron studies. Add Aranesp. Follow-up echocardiogram. Thank you for the consultation. I will continue to follow the patient with you during his hospital stay.
[2019-06-04] MEDS: METOPROLOL SUCCINATE (ER) 50 MG TAB.ER.24H PO SCH (11:35)
[2019-06-04] MEDS: ASPIRIN 81 MG PO SCH (11:35)
[2019-06-04] MEDS: APIXABAN 2.5 MG TABLET PO SCH ×3 (11:35→12:20)
[2019-06-04] MEDS: FLUDROCORTISONE 0.1 MG TAB PO SCH (11:35)
[2019-06-04] MEDS ORDERED: DARBEPOETIN ALFA 40 MCG/0.4 ML SYRINGE SQ SCH (12:00)
[2019-06-04 12:04] LABS: Glucose,Whole Blood 122 mg/dL (75-99)
[2019-06-04] MEDS: INSULIN ASPART (NovoLOG) 100 UNIT/ML VIAL SQ SCH ×3 (12:07→22:24)
--- NOTE | 2019-06-04 14:00 | P.CNPUL ---
History of Present Illness Consult date: 06/04/19 Reason for consult: dyspnea, pleural effusion History of present illness: 78-year-old male patient who is coming in with exertional dyspnea. The patient has been having worsening shortness of breath over this past few days and has become dyspneic with limited amount of activity. For that reason he end up coming to the hospital. No significant swelling lower extremities. No chest pain. No cough or sputum production. No symptoms of pneumonia. This patient has end-stage renal disease and he is on hemodialysis via a AV fistula in the [facility] upper extremity 3 times a week, MW, and the patient has been undergoing his dialysis without any major difficulties and his been compliant. His chest x-ray shows a large left-sided pleural effusion. This was noted on previous chest x- rays however this has progressed significantly over this past 4-5 months. The patient's hemoglobin at time of admission was at 9.5. No evidence of any GI ble eding. No angina. No palpitations. The patient gives a very complicated history of a cardiac arrest that occurred approximately 6 months ago and this was treated [facility] in [facility]. The patient had a prolonged hospitalization. During his hospital stay he underwent cardiac catheterization and ultimately was given an AICD. He is known to have chronic atrial fibrillation. He is baseline ejection fraction is not known to me at this point in time. Denies having previous myocardial infarctions or heart attacks. During this current admission, the patient's BNP level was elevated at 44,009 100. He is currently on Eliquis regarding chronic atrial fibrillation. Review of Systems Constitutional: Reports fatigue, Reports lethargy, Reports weight gain Eyes: denies as per HPI, denies blurred vision, denies bulging eye, denies decreased vision, denies diplopia, denies discharge, denies dry eye, denies irritation, denies itching, denies pain, denies photophobia, denies loss of peripheral vision, denies loss of vision, denies tunnel vision/blind spots Ears: deny: decreased hearing, ear discharge, earache, tinnitus Ears, nose, mouth and throat: Reports as per HPI Cardiovascular: Reports decreased exercise tolerance, Reports dyspnea on exertion, Reports shortness of breath Respiratory: Reports dyspnea Gastrointestinal: Reports as per HPI Genitourinary: Reports as per HPI Musculoskeletal: Reports as per HPI Musculoskeletal: absent: ankle pain, ankle stiffness, ankle swelling Integumentary: Reports as per HPI Neurological: Reports as per HPI Psychiatric: Reports as per HPI Endocrine: Reports as per HPI Hematologic/Lymphatic: Reports as per HPI Allergic/Immunologic: Reports as per HPI Past Medical History Past Medical History: Atrial Fibrillation, Heart Failure, Diabetes Mellitus, Dialysis, Hypertension, Myocardial Infarction ([place]), Renal Disease, Skin Disorder, Syncope Additional Past Medical History / Comment(s): History of cardiac arrest, chronic atrial fibrillation, history of ASD placement, end-stage renal disease on hemodialysis via a fistula in the right upper extremity 3 times a week, diabetes mellitus, chronic atrial fibrillation, hypertension, hyperlipidemia Last Myocardial Infarction Date:: 2017 History of Any Multi-Drug Resistant Organisms: None Reported Past Surgical History: Pacemaker Additional Past Surgical History / Comment(s): 2 ABD SURGERIES R/T INJ. history of AICD placement, history of pacemaker placement that was subsequently upgraded to an AICD in November 2018. History of cardiac catheterization. Past Anesthesia/Blood Transfusion Reactions: No Reported Reaction Type of Cardiac Device: Permanent Pacemaker Device Placement Date:: 10/10/12 Past Psychological History: Anxiety Smoking Status: Never smoker Past Alcohol Use History: None Reported Additional Past Alcohol Use History / Comment(s): She is a lifelong nonsmoker. No illicit drug use, no alcohol use. Past Drug Use History: None Reported - Past Family History Mother Family Medical History: Cancer Additional Family Medical History / Comment(s): Mother at age 67 from lung cancer. Father Family Medical History: Cancer Additional Family Medical History / Comment(s): Father at age 93 from old age. He was diagnosed with throat cancer at age 75. She does not have any brothers. Patient's 1 sister with no major medical problems. Patient has 3 sons and one daughter with no major medical problems. Medications and Allergies Home Medications Medication Instructions Recorded Confirmed Type Omeprazole 20 mg PO DAILY 10/19/18 06/03/19 History Apixaban [Eliquis] 2.5 mg PO BID 06/03/19 06/03/19 History Aspirin EC [Ecotrin Low Dose] 81 mg PO DAILY 06/03/19 06/03/19 History Calcium Acetate [Phoslo] 1,334 mg PO QAM 06/03/19 06/03/19 History Calcium Acetate [Phoslo] 667 mg PO BID 06/03/19 06/03/19 History Cinacalcet HCl [Sensipar] 60 mg PO HS 06/03/19 06/03/19 History Fludrocortisone [Florinef] 0.05 mg PO DAILY 06/03/19 06/03/19 History Metoprolol Succinate [Toprol Xl] 50 mg PO QAM 06/03/19 06/03/19 History Metoprolol Succinate [Toprol Xl] 100 mg PO HS 06/03/19 06/03/19 History Pravastatin Sodium [Pravachol] 20 mg PO HS 06/03/19 06/03/19 History Renal Vitamin 1 tab PO HS 06/03/19 06/03/19 History Allergies Allergy/AdvReac Type Severity Reaction Status Date / Time No Known Allergies Allergy Verified 06/03/19 11:03 Physical Exam Vitals: Vital Signs Temp Pulse Pulse Pulse Pulse Pulse Resp 06/04/19 12:12 97.6 F 60 06/04/19 11:58 60 18 06/04/19 11:33 98.0 F 60 18 06/04/19 08:00 60 17 06/04/19 07:05 98.7 F 60 17 06/04/19 04:00 62 17 06/03/19 23:47 63 17 06/03/19 23:27 98.2 F 63 17 06/03/19 20:00 98.2 F 65 20 06/03/19 17:30 98.4 F 60 22 06/03/19 16:46 97.9 F 60 18 06/03/19 15:30 22 06/03/19 15:18 61 59 L 60 16 06/03/19 15:10 18 06/03/19 15:04 97.6 F 60 16 BP BP BP BP Pulse Ox 06/04/19 12:12 126/58 06/04/19 11:58 06/04/19 11:33 119/56 100 06/04/19 08:00 06/04/19 07:05 120/58 100 06/04/19 04:00 115/56 95 06/03/19 23:47 06/03/19 23:27 113/55 95 06/03/19 20:00 121/48 95 06/03/19 17:30 131/52 97 06/03/19 16:46 121/54 100 06/03/19 15:30 06/03/19 15:18 121/55 112/46 129/57 06/03/19 15:10 06/03/19 15:04 118/52 100 Intake and Output 06/03/19 06/04/19 06/04/19 22:59 06:59 14:59 Intake Total 800 600 Output Total 3000 Balance 800 -2400 Intake: IV 20 Invasive Line 1 20 Oral 800 580 Output: Hemodialysis 3000 Other: Weight 74.6 kg Gen. appearance, comfortable likely distress Head exam was generally normal. There was no scleral icterus or corneal arcus. Mucous membranes were moist. Neck was supple and without jugular venous distension, thyromegaly, or carotid bruits. Carotids were easily palpable bilaterally. There was no adenopathy. Lungs sounds are diminished in the left lung base along with dullness to percussion. The patient is a pacemaker/defibrillator over the left anterior [address] area. No wheezes or rhonchi. Few crackles in the right lung base Cardiac exam revealed the PMI to be normally situated and sized. The rhythm was irregular, consistent with atrial fibrillation and no extrasystoles were noted during several minutes of auscultation. The first and second heart sounds were normal and physiologic splitting of the second heart sound was noted. There were no murmurs, rubs, clicks, or gallops. Abdominal exam revealed normal bowel sounds. The abdomen was soft, non-tender, and without masses, organomegaly, or appreciable enlargement of the abdominal aorta. Extremities revealed a functioning AV fistula in the right upper extremity. Otherwise the rest of the extremities are within normal limits. No cyanosis. No clubbing. Examination of the skin revealed no evidence of significant rashes, suspicious appearing nevi or other concerning lesions. Results - Laboratory Findings CBC and BMP: 06/04/19 07:00 06/04/19 07:00 PT/INR, D-dimer PT 11.2 sec (9.0-12.0) 06/03/19 12:40 INR 1.1 (<1.2) 06/03/19 12:40 Abnormal lab findings: Abnormal Labs 06/03/19 06/03/19 06/03/19 12:40 12:40 12:40 RBC 3.20 L Hgb 9.4 L Hct 29.5 L RDW 15.7 H Chloride 96 L Carbon Dioxide 32 H BUN 38 H Creatinine 6.27 H Glucose 143 H POC Glucose (mg/dL) Calcium 8.1 L AST 14 L ALT 13 L Troponin I 0.055 H* 06/04/19 06/04/19 06/04/19 07:00 07:00 11:50 RBC 3.17 L Hgb 9.5 L Hct 29.2 L RDW 15.6 H Chloride Carbon Dioxide BUN 49 H Creatinine 7.49 H* Glucose 106 H POC Glucose (mg/dL) 122 H Calcium 7.6 L AST ALT Troponin I - Diagnostic Findings Chest x-ray: image reviewed Assessment and Plan Plan: 1 exertional dyspnea, multifactorial. Nevertheless, will be related to worsening shortness of breath is probably related to the development of a large left-sided pleural effusion that was present on previous chest x-rays and there has been interval worsening the size of the pleural fluid. Consider CHF. 2 previous history of cardiopulmonary arrest, treated at [facility] 3 history of AICD placement 4 chronic atrial fibrillation 5 questionable history of coronary artery disease 6 incisional disease on hemodialysis 3 times a week MWF 7 hypertension 8 hyperlipidemia 9 long-term antibiotic ventilation with Eliquis regarding chronic atrial fibrillation 10 chronic anemia, which is attributed to the chronic kidney disease Plan Would like to review the records from [facility] regarding the patient's previous cardiac arrest. Obtain an echocardiogram. Hold Eliquis for now. We'll proceed with a diagnostic and therapeutic thoracentesis of the left lung with the next 24 hours. Cardiology to follow-up. We'll continue to follow. Nephrology on the case regarding routine hemodialysis sessions MWF.
[2019-06-04] MEDS: CINACALCET 30 MG TAB PO SCH ×2 (14:20→22:22)
--- NOTE | 2019-06-04 14:30 | P.HPIM ---
History of Present Illness H&P Date: 06/04/19 Chief Complaint: Shortness of breath, fatigue This is an 78-year-old male patient of Dr. Forman with past medical history of chronic atrial fibrillation with complete heart block status post pacemaker implantation 100% RV pacing, hypertension, hyperlipidemia, diabetes mellitus type 2, end-stage renal disease on dialysis Sunday via fistula. Patient states that he has been very weak for the past 1 week. He also complains of indigestion that has been going on for a couple weeks. He denies any chest pain. He does complain of shortness of breath. He complains of pain across the shoulder blades it feels tight. He states he has no energy and is difficult to take a deep breath. He denies any difficulty swallowing. He denies any increased pedal edema. No epigastric tenderness. He states he's had a regular bowel movement without blood or tarriness. Patient was last seen at Dr. Forman's office 3 weeks ago and saw Leatha GRANADOS at that time. Patient has had a workup in November of this year for syncopal episodes and underwent tilt table test that was negative. The patient came into [facility] emergency center for elaina luation. He was afebrile, heart rate 65, blood pressure 112/65, pulse ox 93%. EKGs ventricular paced rhythm. White count was 7.9, hemoglobin 9.4. BUN 38 creatinine 6.27, chloride 96, CO2 32, sodium 141, potassium 3.8. Blood sugar 143. ProBNP 44,900. Troponin 0.055. Chest x-ray shows increasing now moderate left pleural effusion with adjacent atelectasis and/or consolidation. This was compared to chest x-ray from 01/16/2019. Patient was admitted to the cardiac stepdown unit, started on 1 dose of IV Lasix 40 mg and consult requested with nephrology, Dr. Thompson, Dr. Cuellar. Patient is currently undergoing hemodialysis. Review of Systems Constitutional: Reports fatigue, Reports lethargy, Reports poor appetite, Reports weakness, Denies chills, Denies fever Ears, nose, mouth and throat: Denies dysphagia, Denies nasal discharge, Denies vertigo Cardiovascular: Reports dyspnea on exertion, Reports shortness of breath, Denies chest pain, Denies leg edema Respiratory: Reports dyspnea, Denies cough, Denies cough with sputum, Denies excessive sputum, Denies hemoptysis, Denies home oxygen, Denies wheezing Gastrointestinal: Denies abdominal pain, Denies diarrhea, Denies melena, Denies nausea, Denies vomiting Genitourinary: Denies dysuria, Denies urinary retention Musculoskeletal: Reports muscle weakness, Denies frequent falls, Denies gait dysfunction, Denies myalgias Integumentary: Denies pruritus, Denies rash, Denies wounds Neurological: Denies aphasia, Denies change in mentation, Denies confusion, Denies numbness, Denies seizures, Denies syncope, Denies weakness Psychiatric: Denies anxiety, Denies depression Endocrine: Denies fatigue, Denies weight change Past Medical History Past Medical History: Atrial Fibrillation, Heart Failure, Diabetes Mellitus, Dialysis, Hypertension, Myocardial Infarction ([place]), Renal Disease, Skin Disorder, Syncope Additional Past Medical History / Comment(s): CMP, HAS PACEMAKER. NO RX FOR DM NOW. HEMODIALYSIS VIA FISTULA, MON, WED, SUN. SKIN TEARS EASILY. 10/19/18 TO EC R/T SYNCOPAL EPISODE, INJURY/LACERATION TO HEAD. SEE DR SANDHU'S H&P. Last Myocardial Infarction Date:: 2017 History of Any Multi-Drug Resistant Organisms: None Reported Past Surgical History: Pacemaker Additional Past Surgical History / Comment(s): 2 ABD SURGERIES R/T INJ. PACEMAKER ICD [employer]. FISTULA. Patient has a Medtronic ICD implanted November 2018 Past Anesthesia/Blood Transfusion Reactions: No Reported Reaction Type of Cardiac Device: Permanent Pacemaker Device Placement Date:: 10/10/12 Past Psychological History: Anxiety Smoking Status: Never smoker Past Alcohol Use History: None Reported Additional Past Alcohol Use History / Comment(s): He is a lifelong nonsmoker. No illicit drug use, no alcohol use. Past Drug Use History: None Reported - Past Family History Mother Family Medical History: Cancer Additional Family Medical History / Comment(s): Mother at age 67 from lung cancer. Father Family Medical History: Cancer Additional Family Medical History / Comment(s): Father at age 93 from old age. He was diagnosed with throat cancer at age 75. She does not have any brothers. Patient's 1 sister with no major medical problems. Patient has 3 sons and one daughter with no major medical problems. Medications and Allergies Home Medications Medication Instructions Recorded Confirmed Type Omeprazole 20 mg PO DAILY 10/19/18 06/03/19 History Apixaban [Eliquis] 2.5 mg PO BID 06/03/19 06/03/19 History Aspirin EC [Ecotrin Low Dose] 81 mg PO DAILY 06/03/19 06/03/19 History Calcium Acetate [Phoslo] 1,334 mg PO QA 06/03/19 06/03/19 History Calcium Acetate [Phoslo] 667 mg PO BID 06/03/19 06/03/19 History Cinacalcet HCl [Sensipar] 60 mg PO 06/03/19 06/03/19 History Fludrocortisone [Florinef] 0.05 mg PO DAILY 06/03/19 06/03/19 History Metoprolol Succinate [Toprol Xl] 50 mg PO [facility] 06/03/19 06/03/19 History Metoprolol Succinate [Toprol Xl] 100 mg PO 06/03/19 06/03/19 History Pravastatin Sodium [Pravachol] 20 mg PO 06/03/19 06/03/19 History Renal Vitamin 1 tab PO 06/03/19 06/03/19 History Allergies Allergy/AdvReac Type Severity Reaction Status Date / Time No Known Allergies Allergy Verified 06/03/19 11:03 Physical Exam Vitals: Vital Signs Temp Pulse Pulse Pulse Pulse Pulse Resp 06/04/19 04:00 62 17 06/03/19 23:47 63 17 06/03/19 23:27 98.2 F 63 17 06/03/19 20:00 98.2 F 65 20 06/03/19 17:30 98.4 F 60 22 06/03/19 16:46 97.9 F 60 18 06/03/19 15:30 22 06/03/19 15:18 61 59 L 60 16 06/03/19 15:10 18 06/03/19 15:04 97.6 F 60 16 06/03/19 12:34 98.6 F 60 18 06/03/19 10:33 97.4 F L 65 20 BP BP BP BP Pulse Ox 06/04/19 04:00 115/56 95 06/03/19 23:47 06/03/19 23:27 113/55 95 06/03/19 20:00 121/48 95 06/03/19 17:30 131/52 97 06/03/19 16:46 121/54 100 06/03/19 15:30 06/03/19 15:18 121/55 112/46 129/57 06/03/19 15:10 06/03/19 15:04 118/52 100 06/03/19 12:34 107/49 98 06/03/19 10:33 112/65 93 L Intake and Output 06/03/19 06/04/19 06/04/19 22:59 06:59 14:59 Intake Total 800 Balance 800 Intake: Oral 800 Other: Weight 74.6 kg Gen: This is an 78-year-old male. The patient is resting in bed and appears to be comfortable. He is undergoing hemodialysis at the time of evaluation. HEENT: Head is atraumatic, normocephalic. Pupils equal, round. Sclerae is anicteric. NECK: Supple. No JVD. No lymphadenopathy. No thyromegaly. LUNGS: Clear to auscultation. No wheezes or rhonchi. No intercostal retractions. HEART: Regular rate and rhythm. Systolic murmur. ABDOMEN: Soft. Bowel sounds are present. No masses. No tenderness. EXTREMITIES: Trace bilateral pedal edema. No calf tenderness. NEUROLOGICAL: Patient is awake, alert and oriented x3. Cranial nerves 2 through 12 are grossly intact. Results CBC & Chem 7: 06/04/19 07:00 06/04/19 07:00 Labs: Abnormal Lab Results - Last 24 Hours (Table) 06/03/19 06/03/19 06/03/19 Range/Units 12:40 12:40 12:40 RBC 3.20 L (4.30-5.90) m/uL Hgb 9.4 L (13.0-17.5) gm/dL Hct 29.5 L (39.0-53.0) % RDW 15.7 H (11.5-15.5) % Chloride 96 L (98-107) mmol/L Carbon Dioxide 32 H (22-30) mmol/L BUN 38 H (9-20) mg/dL Creatinine 6.27 H (0.66-1.25) mg/dL Glucose 143 H (74-99) mg/dL Calcium 8.1 L (8.4-10.2) mg/dL AST 14 L (17-59) U/L ALT 13 L (21-72) U/L Troponin I 0.055 H* (0.000-0.034) ng/mL 06/04/19 06/04/19 Range/Units 07:00 07:00 RBC 3.17 L (4.30-5.90) m/uL Hgb 9.5 L (13.0-17.5) gm/dL Hct 29.2 L (39.0-53.0) % RDW 15.6 H (11.5-15.5) % Chloride (98-107) mmol/L Carbon Dioxide (22-30) mmol/L BUN 49 H (9-20) mg/dL Creatinine 7.49 H* (0.66-1.25) mg/dL Glucose 106 H (74-99) mg/dL Calcium 7.6 L (8.4-10.2) mg/dL AST (17-59) U/L ALT (21-72) U/L Troponin I (0.000-0.034) ng/mL Thrombosis Risk Factor Assmnt - DVT/VTE Prophylaxis DVT/VTE Prophylaxis: Pharmacologic Prophylaxis ordered - Choose All That Apply Any of the Below Risk Factors Present?: Yes Other Risk Factors: Yes (afib on eliquis) Other congenital or acquired thrombophilia - If yes, enter type in comment: No Assessment and Plan Plan: 1. Difficulty breathing secondary to a large left pleural effusion and fluid ov erload most likely due to underlying end-stage renal disease and possible acute heart failure. Consults with cardiology and pulmonary medicine. Patient is undergoing hemodialysis today. Consults with pulmonary medicine, cardiology. Echocardiogram has been ordered by cardiology. 2. End-stage renal disease. HD per nephrology. 3. Chronic atrial fibrillation and complete heart block status post pacemaker implantation with 100% RV pacing. Continue eliquis 2.5 mg twice daily 4. Hypertension. Continue Toprol-XL 50 mg morning and 100 at bedtime. Continue Nephrocaps. 5. Hyperlipidemia. Continue Pravachol. 6. Diabetes mellitus type 2. Continue NovoLog scale. 7. Mineral disease of chronic kidney disease. Continue PhosLo. 8. Anemia of chronic kidney disease. 9. Previous history of cardiopulmonary arrest at [facility]. 10. GI prophylaxis. Protonix. 11. DVT prophylaxis. Eliquis. Patient will be admitted to the hospital for a minimum of 2 night stay. Discharge plan: To be determined Impression and plan of care have been directed as dictated by the signing physician. Brandi Naik nurse practitioner acting as scribe for signing physician.
[2019-06-04 15:12] VITALS: BMI 21.1
[2019-06-04 16:47] LABS: Glucose,Whole Blood 166 mg/dL (75-99)
[2019-06-04 17:35] LABS: Iron Saturation 20.31 (15.00-50.00)
[2019-06-04 18:07] LABS: Hemoglobin A1C 6.4 % (4.0-6.0)
[2019-06-04 20:42] LABS: Glucose,Whole Blood 135 mg/dL (75-99)
[2019-06-04] MEDS: METOPROLOL SUCCINATE (ER) 100 MG TAB.ER.24H PO SCH (22:21)
[2019-06-04] MEDS: FOLIC ACID-VIT B COMPLEX-VIT C 1 CAP PO SCH (22:21)
[2019-06-04] MEDS: ALPRAZolam 0.5 MG TAB PO PRN (22:22)
[2019-06-04] MEDS: PRAVASTATIN SODIUM 20 MG TAB PO SCH (22:22)
[2019-06-05 06:13] LABS: Glucose,Whole Blood 115 mg/dL (75-99)
[2019-06-05] MEDS: CALCIUM ACETATE 667 MG CAP PO SCH ×3 (06:39→17:30)
[2019-06-05] MEDS: PANTOPRAZOLE 40 MG TABLET PO SCH (06:40)
[2019-06-05] MEDS: INSULIN ASPART (NovoLOG) 100 UNIT/ML VIAL SQ SCH ×3 (07:33→17:04)
[2019-06-05 09:07] LABS: Basophils # (A) 0.1 k/uL (0-0.2); Basophils % (A) 1 %; Eosinophils # (A) 0.1 k/uL (0-0.7); Eosinophils % (A) 1 %; HGB 10.1 gm/dL (13.0-17.5); Lymphocytes # (A) 1.4 k/uL (1.0-4.8); Lymphocytes % (A) 12 %; MCH 29.2 pg (25.0-35.0); MCHC 31.7 g/dL (31.0-37.0); MCV 92.3 fL (80.0-100.0); Mean Platelet Volume 6.4; Monocytes # (A) 0.4 k/uL (0-1.0); Monocytes % (A) 4 %; Neutrophils % (A) 80 %; Platelet Count 290 k/uL (150-450); RBC 3.47 m/uL (4.30-5.90); RDW 15.4 % (11.5-15.5); WBC 11.3 k/uL (3.8-10.6)
[2019-06-05] MEDS: METOPROLOL SUCCINATE (ER) 50 MG TAB.ER.24H PO SCH (09:13)
[2019-06-05] MEDS: FLUDROCORTISONE 0.1 MG TAB PO SCH (09:13)
[2019-06-05 09:27] LABS: Calcium 8.1 mg/dL (8.4-10.2); Potassium 3.9 mmol/L (3.5-5.1)
--- NOTE | 2019-06-05 11:22 | P.PN ---
Subjective Patient is seen in follow-up for end-stage renal disease. He is maintained on hemodialysis on a Sunday schedule. Tolerated hemodialysis well yesterday 3 years at filtration. Patient was seen in the bathroom. He sitting comfortably but felt lightheaded earlier. His blood pressure has been on the lower side. Dyspnea is improved. No edema. Vital signs are stable. General: The patient appeared well nourished and normally developed. HEENT: Head exam is unremarkable. Neck is without jugular venous distension. LUNGS: Lungs are clear to auscultation and percussion. Breath sounds decreased. HEART: Rate and Rhythm are regular. First and second heart sounds normal. No murmurs, rubs or gallops. ABDOMEN: Abdominal exam reveals normal bowel sounds. Non-tender and non- distended. No evidence of peritonitis. EXTREMITITES: No clubbing, cyanosis, or edema. Objective - Vital Signs Vital signs: Vital Signs Temp 97.9 F 06/05/19 07:47 Pulse 60 06/05/19 07:49 Resp 18 06/05/19 07:49 BP 110/63 06/05/19 07:47 Pulse Ox 98 06/05/19 07:47 Intake & Output 06/04/19 06/05/19 06/05/19 18:59 06:59 18:59 Intake Total 810 30 240 Output Total 3000 Balance -2190 30 240 Weight 74.6 kg 71.4 kg Intake: IV 30 30 10 Invasive Line 1 30 30 10 Oral 780 230 Output: Hemodialysis 3000 Other: # Voids 1 - Labs CBC & Chem 7: 06/05/19 08:34 06/05/19 08:34 Labs: Abnormal Lab Results - Last 24 Hours (Table) 06/04/19 06/04/19 06/04/19 Range/Units 07:00 07:00 11:50 WBC (3.8-10.6) k/uL RBC (4.30-5.90) m/uL Hgb (13.0-17.5) gm/dL Hct (39.0-53.0) % Neutrophils # (1.3-7.7) k/uL Chloride (98-107) mmol/L BUN (9-20) mg/dL Creatinine (0.66-1.25) mg/dL Glucose (74-99) mg/dL POC Glucose (mg/dL) 122 H (75-99) mg/dL Hemoglobin A1c 6.4 H (4.0-6.0) % Calcium (8.4-10.2) mg/dL Iron 39 L (65-175) ug/dL TIBC 192 L (228-460) ug/dL Ferritin 1409.7 H (22.0-322.0) ng/mL 06/04/19 06/04/19 06/05/19 Range/Units 16:46 20:41 06:11 WBC (3.8-10.6) k/uL RBC (4.30-5.90) m/uL Hgb (13.0-17.5) gm/dL Hct (39.0-53.0) % Neutrophils # (1.3-7.7) k/uL Chloride (98-107) mmol/L BUN (9-20) mg/dL Creatinine (0.66-1.25) mg/dL Glucose (74-99) mg/dL POC Glucose (mg/dL) 166 H 135 H 115 H (75-99) mg/dL Hemoglobin A1c (4.0-6.0) % Calcium (8.4-10.2) mg/dL Iron (65-175) ug/dL TIBC (228-460) ug/dL Ferritin (22.0-322.0) ng/mL 06/05/19 06/05/19 Range/Units 08:34 08:34 WBC 11.3 H (3.8-10.6) k/uL RBC 3.47 L (4.30-5.90) m/uL Hgb 10.1 L (13.0-17.5) gm/dL Hct 32.0 L (39.0-53.0) % Neutrophils # 9.0 H (1.3-7.7) k/uL Chloride 97 L (98-107) mmol/L BUN 37 H (9-20) mg/dL Creatinine 5.89 H (0.66-1.25) mg/dL Glucose 199 H (74-99) mg/dL POC Glucose (mg/dL) (75-99) mg/dL Hemoglobin A1c (4.0-6.0) % Calcium 8.1 L (8.4-10.2) mg/dL Iron (65-175) ug/dL TIBC (228-460) ug/dL Ferritin (22.0-322.0) ng/mL Assessment and Plan Plan: Assessment: 1. End-stage renal disease maintained on hemodialysis on a Sunday schedule. 2. Dyspnea secondary to fluid overload. Better. 3. Anemia of chronic kidney disease. High ferritin levels noted. Maintained on Aranesp. 4. Chronic kidney disease mineral bone disease maintained on phosphate binders and Sensipar. 5. History of coronary artery disease. Plan: Hemodialysis tomorrow. Add midodrine. To hold if systolic blood pressure greater than 120. Follow-up echocardiogram. Potential thoracentesis today.
--- NOTE | 2019-06-05 11:43 | ECHOF ---
Referral Reason:chf MEASUREMENTS -------- HEIGHT: 188.0 cm WEIGHT: 74.4 kg BP: 115/56 RVIDd: 2.5 cm (< 3.3) IVSd: 1.3 cm (0.6 - 1.1) LVIDd: 3.4 cm (3.9 - 5.3) LVPWd: 1.2 cm (0.6 - 1.1) IVSs: 1.3 cm LVIDs: 2.0 cm LVPWs: 1.5 cm LAESV Index (A-L): 28.71 ml/m Ao Diam: 3.7 cm (2.0 - 3.7) AV Cusp: 2.3 cm (1.5 - 2.6) LA Diam: 3.6 cm (2.7 - 3.8) MV EXCURSION: 18.048 mm (> 18.000) MV EF SLOPE: 74 mm/s (70 - 150) EPSS: 0.7 cm MV E Paco: 0.88 m/s MV DecT: 183 ms MV A Paco: 0.19 m/s MV E/A Ratio: 4.61 RAP: 10.00 mmHg RVSP: 48.88 mmHg FINDINGS -------- Sinus rhythm. This was a technically difficult study with suboptimal apical views. There is mild concentric left ventricular hypertrophy. Overall left ventricular systolic function i s normal with, an EF between 55 - 60 %. Restrictive LV filling pattern, consistent with elevated L A pressure 10.25. The right ventricle is normal in size. Normal LA size by volume 22+/-6 ml/m2. The right atrium is mildly enlarged. 5.0mg of Lumason was utilized for enhancement of images Interatrial and interventricular septum intact. There is mild aortic valve sclerosis. There is no evidence of aortic regurgitation. There is no e vidence of aortic stenosis. Mild mitral annular calcification present. There is trace mitral regurgitation. Moderate tricuspid regurgitation present. There is moderate pulmonary hypertension. The right roberto tricular systolic pressure, as measured by Doppler, is 48.88mmHg. There is no pulmonic regurgitation present. The aortic root size is normal. The inferior vena cava is mildly dilated. There is a trivial pericardial effusion present. Large Pleural Effusion. CONCLUSIONS -------- 1. Sinus rhythm. 2. This was a technically difficult study with suboptimal apical views. 3. There is mild concentric left ventricular hypertrophy. 4. Restrictive LV filling pattern, consistent with elevated LA pressure 10.25. 5. The right ventricle is normal in size. 6. Normal LA size by volume 22+/-6 ml/m2. 7. The right atrium is mildly enlarged. 8. 5.0mg of Lumason was utilized for enhancement of images 9. Interatrial and interventricular septum intact. 10. There is mild aortic valve sclerosis. 11. There is no evidence of aortic regurgitation. 12. There is no evidence of aortic stenosis. 13. Mild mitral annular calcification present. 14. There is trace mitral regurgitation. 15. Moderate tricuspid regurgitation present. 16. There is moderate pulmonary hypertension. 17. The right ventricular systolic pressure, as measured by Doppler, is 48.88mmHg. 18. There is no pulmonic regurgitation present. 19. The aortic root size is normal. 20. The inferior vena cava is mildly dilated. 21. There is a trivial pericardial effusion present. 22. Large Pleural Effusion. [employer] DYER: Idania Stovall RDCS
[2019-06-05] MEDS: MIDODRINE 5 MG TAB PO SCH ×2 (11:47→17:30)
[2019-06-05] MEDS ORDERED: LIDOCAINE 4% CREAM 5 GM TUBE TOPICAL PRN (11:54)
[2019-06-05] MEDS ORDERED: ACETAMINOPHEN TAB 325 MG TAB PO PRN (11:54)
[2019-06-05] MEDS: ASPIRIN 81 MG PO SCH (12:22)
[2019-06-05 12:30] LABS: Glucose,Whole Blood 147 mg/dL (75-99)
--- NOTE | 2019-06-05 12:52 | XR ---
EXAMINATION TYPE: XR chest 1V portable DATE OF EXAM: 06/05/2019 COMPARISON: 06/03/2019 HISTORY: Status post left-sided thoracentesis TECHNIQUE: Single frontal view of the chest is obtained. FINDINGS: There is improved degree of pleural fluid on the left, now small pleural effusion as demetra red to moderate on the prior exam. There is associated left basilar airspace disease. Remainder the l ungs are clear. Very trace right pleural effusion blunts the costophrenic angle. Multilead left-sided cardiac device is seen with enlarged cardiomediastinal silhouette. Generalized osseous demineralizat ion is present with degenerative changes of the spine. No postprocedural pneumothorax identified. IMPRESSION: Improved left pleural effusion status post thoracentesis, now small, without postprocedu ral pneumothorax seen.
[2019-06-05 15:07] LABS: Appearance,BF Bloody; Color,BF Red; Nucleated Cells, Body Fluid 500 /uL; RBC, Body Fluid 574000 /uL
[2019-06-05 15:10] LABS: Mononuclear WBC,Body Fluid 61 %; Polynuclear WBC,Body Fluid 32 %; Total Cells Counted,Body Fluid 100
--- NOTE | 2019-06-05 15:18 | P.PN ---
Subjective Progress Note Date: 06/05/19 78-year-old male patient who is coming in with exertional dyspnea. The patient has been having worsening shortness of breath over this past few days and has become dyspneic with limited amount of activity. For that reason he end up coming to the hospital. No significant swelling lower extremities. No chest pain. No cough or sputum production. No symptoms of pneumonia. This patient has end-stage renal disease and he is on hemodialysis via a AV fistula in the right upper extremity 3 times a week, MWF, and the patient has been undergoing his dialysis without any major difficulties and his been compliant. His chest x-ray shows a large left-sided pleural effusion. This was noted on previous [facility] x-rays however this has progressed significantly over this past 4-5 months. The patient's hemoglobin at time of admission was at 9.5. No evidence of any GI bleeding. No angina. No palpitations. The patient gives a very complicated history of a cardiac arrest that occurred approximately 6 months ago and this was treated [facility] in [facility]. The patient had a prolonged hospitalization. During his hospital stay he underwent cardiac catheterization and ultimately was given an AICD. He is known to have chronic atrial fibrillation. He is baseline ejection fraction is not known to me at this point in time. Denies having previous myocardial infarctions or heart attacks. During this current admission, the patient's BNP level was elevated at 44,009 100. He is currently on Eliquis regarding chronic atrial fibrillation. 06/05/2019 Patient was seen and examined this morning, underwent a therapeutic thoracentesis of the left lung. P chest x-ray showed improved left pleural effusion status post thoracentesis. A cardiogram with Doppler study was perfor med revealed an ejection fraction of 55-60%, moderate tricuspid regurg, moderate pulmonary hypertension, trivial pericardial effusion. Weight is down 3 kg today. White blood cell count 11.3, hemoglobin 10.1, platelet count 290, sodium 137, potassium 3.9, BUN 37 and creatinine 5.8. Objective - Vital Signs Vital signs: Vital Signs Temp 97.6 F 06/05/19 12:00 Pulse 69 06/05/19 12:00 Resp 18 06/05/19 12:00 BP 101/59 06/05/19 12:00 Pulse Ox 98 06/05/19 12:00 Intake & Output 06/04/19 06/05/19 06/05/19 18:59 06:59 18:59 Intake Total 810 30 450 Output Total 3000 Balance -2190 30 450 Weight 74.6 kg 71.4 kg Intake: IV 30 30 20 Invasive Line 1 30 30 20 Oral 780 430 Output: Hemodialysis 3000 Other: # Voids 1 - Exam Head exam was generally normal. There was no scleral icterus or corneal arcus. Mucous membranes were moist. Neck was supple and without jugular venous distension, thyromegaly, or carotid bruits. Carotids were easily palpable bilaterally. There was no adenopathy. Lungs sounds are clear to auscultation . The patient is a pacemaker/defibrillator over the left anterior chest area. No wheezes or rho nchi. Few crackles in the right lung base Cardiac exam revealed the PMI to be normally situated and sized. The rhythm was irregular, consistent with atrial fibrillation and no extrasystoles were noted during several minutes of auscultation. The first and second heart sounds were normal and physiologic splitting of the second heart sound was noted. There were no murmurs, rubs, clicks, or gallops. Abdominal exam revealed normal bowel sounds. The abdomen was soft, non-tender, and without masses, organomegaly, or appreciable enlargement of the abdominal aorta. Extremities revealed a functioning AV fistula in the right upper extremity. Otherwise the rest of the extremities are within normal limits. No cyanosis. No clubbing. Examination of the skin revealed no evidence of significant rashes, suspicious appearing nevi or other concerning lesions. - Labs CBC & Chem 7: 06/05/19 08:34 06/05/19 08:34 Labs: Abnormal Lab Results - Last 24 Hours (Table) 06/04/19 06/04/19 06/04/19 Range/Units 07:00 07:00 16:46 WBC (3.8-10.6) k/uL RBC (4.30-5.90) m/uL Hgb (13.0-17.5) gm/dL Hct (39.0-53.0) % Neutrophils # (1.3-7.7) k/uL Chloride (98-107) mmol/L BUN (9-20) mg/dL Creatinine (0.66-1.25) mg/dL Glucose (74-99) mg/dL POC Glucose (mg/dL) 166 H (75-99) mg/dL Hemoglobin A1c 6.4 H (4.0-6.0) % Calcium (8.4-10.2) mg/dL Iron 39 L (65-175) ug/dL TIBC 192 L (228-460) ug/dL Ferritin 1409.7 H (22.0-322.0) ng/mL 06/04/19 06/05/19 06/05/19 Range/Units 20:41 06:11 08:34 WBC 11.3 H (3.8-10.6) k/uL RBC 3.47 L (4.30-5.90) m/uL Hgb 10.1 L (13.0-17.5) gm/dL Hct 32.0 L (39.0-53.0) % Neutrophils # 9.0 H (1.3-7.7) k/uL Chloride (98-107) mmol/L BUN (9-20) mg/dL Creatinine (0.66-1.25) mg/dL Glucose (74-99) mg/dL POC Glucose (mg/dL) 135 H 115 H (75-99) mg/dL Hemoglobin A1c (4.0-6.0) % Calcium (8.4-10.2) mg/dL Iron (65-175) ug/dL TIBC (228-460) ug/dL Ferritin (22.0-322.0) ng/mL 06/05/19 06/05/19 Range/Units 08:34 12:27 WBC (3.8-10.6) k/uL RBC (4.30-5.90) m/uL Hgb (13.0-17.5) gm/dL Hct (39.0-53.0) % Neutrophils # (1.3-7.7) k/uL Chloride 97 L (98-107) mmol/L BUN 37 H (9-20) mg/dL Creatinine 5.89 H (0.66-1.25) mg/dL Glucose 199 H (74-99) mg/dL POC Glucose (mg/dL) 147 H (75-99) mg/dL Hemoglobin A1c (4.0-6.0) % Calcium 8.1 L (8.4-10.2) mg/dL Iron (65-175) ug/dL TIBC (228-460) ug/dL Ferritin (22.0-322.0) ng/mL Assessment and Plan Plan: Assessment and plan 1 exertional dyspnea, multifactorial. probably related to the development of a large left-sided pleural effusion, status post thoracentesis 2 previous history of cardiopulmonary arrest, treated at [facility] 3 history of AICD placement 4 chronic atrial fibrillation 5 questionable history of coronary artery disease 6 incisional disease on hemodialysis 3 times a week MWF 7 hypertension 8 hyperlipidemia 9 long-term antibiotic ventilation with Eliquis regarding chronic atrial fibrill ation 10 chronic anemia, which is attributed to the chronic kidney disease Plan EchoCardiac gram with Doppler study revealed a normal left ventricular systolic function. From cardiology's perspective we'll recommend to discontinue this patient on current medications and we will follow along with you now on an as- needed basis only please don't hesitate to call with any questions. DNP note has been reviewed, I agree with a documented findings and plan of care. Patient was seen and examined.
--- NOTE | 2019-06-05 15:23 | P.PN ---
Subjective Progress Note Date: 06/05/19 Principal diagnosis: Dyspnea, pleural effusion 78-year-old male patient who is coming in with exertional dyspnea. The patient has been having worsening shortness of breath over this past few days and has become dyspneic with limited amount of activity. For that reason he end up coming to the hospital. No significant swelling lower extremities. No chest pain. No cough or sputum production. No symptoms of pneumonia. This patient has end-stage renal disease and he is on hemodialysis via a AV fistula in the right upper extremity 3 times a week, MW, and the patient has been undergoing his dialysis without any major difficulties and his been compliant. His chest x-ray shows a large left-sided pleural effusion. This was noted on previous chest x-rays however this has progressed significantly over this past 4-5 months. The patient's hemoglobin at time of admission was at 9.5. No evidence of any GI bleeding. No angina. No palpitations. The patient gives a very complicated history of a cardiac arrest that occurred approximately 6 months ago and this was treated [facility] in [facility]. The patient had a prolonged hospitalization. During his hospital stay he underwent cardiac catheterization and ultimately was given an AICD. He is known to have chronic atrial fibrillation. He is baseline ejection fraction is not known to me at this point in time. Denies having previous myocardial infarctions or heart attacks. During this current admission, the patient's BNP level was elevated at 44,009 100. He is currently on Eliquis regarding chronic atrial fibrillation. On 06/05/2019 patient seen in follow-up on selective care unit. Today patient had a left-sided thoracentesis with removal of 2.2 L of dark sanguineous fluid, follow-up chest x-ray was obtained showing some residual left pleural effusion, which could not be completely drained related to patient having chest discomfort. No evidence of postprocedural pneumothorax. Fluid was sent for cytology. He is on room air, with a pulse ox of 98%, patient is afebrile, hemodynamically stable, lung sounds are diminished at the bases, with improvement in the aeration following the left-sided thoracentesis. No fever or chills, today's labs have been reviewed, showing white blood cell count of 11.3, hemoglobin of 10.1, sodium of 137, potassium is 3.9, chloride is 97, CO2 is 26, BUN is 37, creatinine is improving, down to 5.89 Objective - Vital Signs Vital signs: Vital Signs Temp 97.6 F 06/05/19 12:00 Pulse 69 06/05/19 12:00 Resp 18 06/05/19 12:00 BP 101/59 06/05/19 12:00 Pulse Ox 98 06/05/19 12:00 Intake & Output 06/04/19 06/05/19 06/05/19 18:59 06:59 18:59 Intake Total 810 30 450 Output Total 3000 Balance -2190 30 450 Weight 74.6 kg 71.4 kg Intake: IV 30 30 20 Invasive Line 1 30 30 20 Oral 780 430 Output: Hemodialysis 3000 Other: # Voids 1 - Exam GENERAL EXAM: Alert, pleasant, 78-year-old white male, on room air, comfortable in no apparent distress. HEAD: Normocephalic/atraumatic. EYES: Normal reaction of pupils, equal size. Conjunctiva pink, sclera white. NOSE: Clear with pink turbinates. THROAT: No erythema or exudates. NECK: No masses, no JVD, no thyroid enlargement, no adenopathy. CHEST: No chest wall deformity. Symmetrical expansion. LUNGS: Equal air entry with diminished breath sounds at the left base, with dullness to percussion, with improvement in the air entry following the left- sided thoracentesis CVS: Regular rate and rhythm, normal S1 and S2, no gallops, no murmurs, no rubs ABDOMEN: Soft, nontender. No hepatosplenomegaly, normal bowel sounds, no guarding or rigidity. EXTREMITIES: No clubbing, no edema, no cyanosis, 2+ pulses and upper and lower extremities. MUSCULOSKELETAL: Muscle strength and tone normal. SPINE: No scoliosis or deformity SKIN: No rashes CENTRAL NERVOUS SYSTEM: Alert and oriented -3. No focal deficits, tone is n ormal in all 4 extremities. PSYCHIATRIC: Alert and oriented -3. Appropriate affect. Intact judgment and insight. - Labs CBC & Chem 7: 06/05/19 08:34 06/05/19 08:34 Labs: Abnormal Lab Results - Last 24 Hours (Table) 06/04/19 06/04/19 06/04/19 Range/Units 07:00 07:00 16:46 WBC (3.8-10.6) k/uL RBC (4.30-5.90) m/uL Hgb (13.0-17.5) gm/dL Hct (39.0-53.0) % Neutrophils # (1.3-7.7) k/uL Chloride (98-107) mmol/L BUN (9-20) mg/dL Creatinine (0.66-1.25) mg/dL Glucose (74-99) mg/dL POC Glucose (mg/dL) 166 H (75-99) mg/dL Hemoglobin A1c 6.4 H (4.0-6.0) % Calcium (8.4-10.2) mg/dL Iron 39 L (65-175) ug/dL TIBC 192 L (228-460) ug/dL Ferritin 1409.7 H (22.0-322.0) ng/mL 06/04/19 06/05/19 06/05/19 Range/Units 20:41 06:11 08:34 WBC 11.3 H (3.8-10.6) k/uL RBC 3.47 L (4.30-5.90) m/uL Hgb 10.1 L (13.0-17.5) gm/dL Hct 32.0 L (39.0-53.0) % Neutrophils # 9.0 H (1.3-7.7) k/uL Chloride (98-107) mmol/L BUN (9-20) mg/dL Creatinine (0.66-1.25) mg/dL Glucose (74-99) mg/dL POC Glucose (mg/dL) 135 H 115 H (75-99) mg/dL Hemoglobin A1c (4.0-6.0) % Calcium (8.4-10.2) mg/dL Iron (65-175) ug/dL TIBC (228-460) ug/dL Ferritin (22.0-322.0) ng/mL 06/05/19 06/05/19 Range/Units 08:34 12:27 WBC (3.8-10.6) k/uL RBC (4.30-5.90) m/uL Hgb (13.0-17.5) gm/dL Hct (39.0-53.0) % Neutrophils # (1.3-7.7) k/uL Chloride 97 L (98-107) mmol/L BUN 37 H (9-20) mg/dL Creatinine 5.89 H (0.66-1.25) mg/dL Glucose 199 H (74-99) mg/dL POC Glucose (mg/dL) 147 H (75-99) mg/dL Hemoglobin A1c (4.0-6.0) % Calcium 8.1 L (8.4-10.2) mg/dL Iron (65-175) ug/dL TIBC (228-460) ug/dL Ferritin (22.0-322.0) ng/mL Assessment and Plan Plan: Assessment: 1 exertional dyspnea, multifactorial. Nevertheless, will be related to worsening shortness of breath is probably related to the development of a large left-sided pleural effusion that was present on previous chest x-rays and there has been interval worsening the size of the pleural fluid. Consider CHF. Patient underwent left-sided thoracentesis today on 06/05/2019 with removal of 2.2 L of dark sanguinous fluid which was sent for cytology 2 previous history of cardiopulmonary arrest, treated at [facility] 3 history of AICD placement 4 chronic atrial fibrillation 5 questionable history of coronary artery disease 6 incisional disease on hemodialysis 3 times a week MWF 7 hypertension 8 hyperlipidemia 9 long-term antibiotic ventilation with Eliquis regarding chronic atrial fibrillation 10 chronic anemia, which is attributed to the chronic kidney disease Plan: Continue current medical treatment, patient tolerated procedure well, postprocedural chest x-ray showed no evidence of pneumothorax, with improvement in the appearance of the left-sided pleural effusion. Fluid was sent for cytology, vital signs are stable, and pulse ox is 98%. We'll await for the results of the pleural fluid cytology, will continue to follow I performed a history & physical examination of the patient and discussed their management with my nurse practitioner, Ute Lyle. I reviewed the nurse practitioner's note and agree with the documented findings and plan of care. Lung sounds are positive for diminished breath sounds. The findings and the impression was discussed with the patient. I attest to the documentation by the nurse practitioner. Time with Patient: Less than 30
[2019-06-05] MEDS: PRAVASTATIN SODIUM 20 MG TAB PO SCH (22:48)
[2019-06-05] MEDS: CINACALCET 30 MG TAB PO SCH (22:48)
[2019-06-05] MEDS: ALPRAZolam 0.5 MG TAB PO PRN (22:48)
[2019-06-05] MEDS: APIXABAN 2.5 MG TABLET PO SCH (22:48)
[2019-06-05] MEDS: METOPROLOL SUCCINATE (ER) 100 MG TAB.ER.24H PO SCH (22:48)
[2019-06-05] MEDS: FOLIC ACID-VIT B COMPLEX-VIT C 1 CAP PO SCH (22:48)
--- NOTE | 2019-06-06 00:50 | PCN ---
PROCEDURE NOTE Indication: Left sided pleural effusion. PREOP DIAGNOSIS: Left-sided pleural effusion. POSTOP DIAGNOSIS: Left sided pleural effusion. A time-out was completed verifying correct patient, procedure, site, positioning , and implant (s) or special equipment if applicable. Ultrasound guidance was not used and appropriate fluid pocket was identified and marked. Patient was positioned, prepped and draped in usual sterile fashion. Lidocaine was used to anesthetize the area. A Thoracentesis catheter was introduced into the pleural space and fluid was removed. Blood loss was none. A chest x-ray was ordered to evaluate for pneumothorax. Total Fluid Removed: 2.2 L Color of Fluid: Bloody effusion Fluid: was/was not sent for appropriate laboratory tests. Patient tolerated the procedure well and there were no complications. MMODL / IJN: [id number] /
[2019-06-06] MEDS: INSULIN ASPART (NovoLOG) 100 UNIT/ML VIAL SQ SCH ×5 (06:43→21:37)
[2019-06-06] MEDS: MIDODRINE 5 MG TAB PO SCH ×3 (06:47→17:07)
[2019-06-06] MEDS: CALCIUM ACETATE 667 MG CAP PO SCH ×3 (06:47→17:07)
[2019-06-06] MEDS: PANTOPRAZOLE 40 MG TABLET PO SCH (06:47)
--- NOTE | 2019-06-06 07:40 | P.PN ---
Subjective Progress Note Date: 06/05/19 This is an 78-year-old male patient of Dr. Forman with past medical history of chronic atrial fibrillation with complete heart block status post pacemaker implantation and upgrade to AICD, hypertension, hyperlipidemia, diabetes mellitus type 2, end-stage renal disease on dialysis Sunday via fistula. Patient states that he has been very weak for the past 1 week. He also complains of indigestion that has been going on for a couple weeks. He denies any chest pain. He does complain of shortness of breath. He complains of pain across the shoulder blades it feels tight. He states he has no energy and is difficult to take a deep breath. He denies any difficulty swallowing. He denies any increased pedal edema. No epigastric tenderness. He states he's had a regular bowel movement without blood or tarriness. Patient was last seen at Dr. Forman's office 3 weeks ago and saw Leatha GRANADOS at that time. Patient has had a workup in November of this year for syncopal episodes and underwent tilt table test that was negative. The patient came into [facility] emergency center for evaluation. He was afebrile, heart rate 65, blood pressure 112/65, pulse ox 93%. EKGs ventricular paced rhythm. White count was 7.9, hemoglobin 9.4. BUN 38 creatinine 6.27, chloride 96, CO2 32, sodium 141, potassium 3.8. Blood sugar 143. ProBNP 44,900. Troponin 0.055. Chest x-ray shows increasing now moderate left pleural effusion with adjacent atelectasis and/or consolidation. This was compared to chest x-ray from 01/16/2019. Patient was admitted to the cardiac stepdown unit, started on 1 dose of IV Lasix 40 mg and consult requested with nephrology, Dr. Thompson, Dr. Cuellar. Patient is currently undergoing hemodialysis. 06/05: Patient has been afebrile, heart rate 60, blood pressure 110/61, pulse ox 90% on room air. Repeat lab work reveals white count 11.3, hemoglobin 10.1, platelet count 290. Chloride 97, BUN 37 creatinine 5.89. Blood sugars run be tween 115 and 199. The patient is scheduled for thoracentesis today. Patient states that last night he got up to the bathroom was doing quite well he did not have to wear oxygen and pulse ox was stable. He was able to sleep all night without oxygen but this morning he has had increasing shortness of breath. He is complaining of neck pain is nonradiating heat and Tylenol will be ordered for this. He is scheduled for hemodialysis tomorrow and Dr. Clinton has added in Midodrine. Echocardiogram has been obtained and report is pending. Objective - Vital Signs Vital signs: Vital Signs Temp 97.9 F 06/05/19 07:47 Pulse 60 06/05/19 07:49 Resp 18 06/05/19 07:49 BP 110/63 06/05/19 07:47 Pulse Ox 98 06/05/19 07:47 Intake & Output 06/04/19 06/05/19 06/05/19 18:59 06:59 18:59 Intake Total 810 30 240 Output Total 3000 Balance -2190 30 240 Weight 74.6 kg 71.4 kg Intake: IV 30 30 10 Invasive Line 1 30 30 10 Oral 780 230 Output: Hemodialysis 3000 Other: # Voids 1 - Exam Review of Systems Constitutional: Reports fatigue, Reports lethargy, Reports poor appetite, Reports weakness, Denies chills, Denies fever Ears, nose, mouth and throat: Denies dysphagia, Denies nasal discharge, Denies vertigo Cardiovascular: Reports dyspnea on exertion, Reports shortness of breath, Denies chest pain, Denies leg edema Respiratory: Reports dyspnea, Denies cough, Denies cough with sputum, Denies excessive sputum, Denies hemoptysis, Denies home oxygen, Denies wheezing Gastrointestinal: Denies abdominal pain, Denies diarrhea, Denies melena, Denies nausea, Denies vomiting Genitourinary: Denies dysuria, Denies urinary retention Musculoskeletal: Reports muscle weakness, Denies frequent falls, Denies gait dysfunction, Denies myalgias Integumentary: Denies pruritus, Denies rash, Denies wounds Neurological: Denies aphasia, Denies change in mentation, Denies confusion, Denies numbness, Denies seizures, Denies syncope, Denies weakness Psychiatric: Denies anxiety, Denies depression Endocrine: Denies fatigue, Denies weight change Gen: This is an 78-year-old male. The patient is resting in bed and appears to be in mild distress. Patient appears anxious as well. HEENT: Head is atraumatic, normocephalic. Pupils equal, round. Sclerae is anicteric. NECK: Supple. No JVD. No lymphadenopathy. No thyromegaly. LUNGS: Diminished. No wheezes or rhonchi. Mild intercostal retractions. HEART: Regular rate and rhythm. Systolic murmur. ABDOMEN: Soft. Bowel sounds are present. No masses. No tenderness. EXTREMITIES: Trace bilateral pedal edema. No calf tenderness. NEUROLOGICAL: Patient is awake, alert and oriented x3. Cranial nerves 2 through 12 are grossly intact. - Labs CBC & Chem 7: 06/05/19 08:34 06/05/19 08:34 Labs: Abnormal Lab Results - Last 24 Hours (Table) 06/04/19 06/04/19 06/04/19 Range/Units 07:00 07:00 11:50 WBC (3.8-10.6) k/uL RBC (4.30-5.90) m/uL Hgb (13.0-17.5) gm/dL Hct (39.0-53.0) % Neutrophils # (1.3-7.7) k/uL POC Glucose (mg/dL) 122 H (75-99) mg/dL Hemoglobin A1c 6.4 H (4.0-6.0) % Iron 39 L (65-175) ug/dL TIBC 192 L (228-460) ug/dL Ferritin 1409.7 H (22.0-322.0) ng/mL 06/04/19 06/04/19 06/05/19 Range/Units 16:46 20:41 06:11 WBC (3.8-10.6) k/uL RBC (4.30-5.90) m/uL Hgb (13.0-17.5) gm/dL Hct (39.0-53.0) % Neutrophils # (1.3-7.7) k/uL POC Glucose (mg/dL) 166 H 135 H 115 H (75-99) mg/dL Hemoglobin A1c (4.0-6.0) % Iron (65-175) ug/dL TIBC (228-460) ug/dL Ferritin (22.0-322.0) ng/mL 06/05/19 Range/Units 08:34 WBC 11.3 H (3.8-10.6) k/uL RBC 3.47 L (4.30-5.90) m/uL Hgb 10.1 L (13.0-17.5) gm/dL Hct 32.0 L (39.0-53.0) % Neutrophils # 9.0 H (1.3-7.7) k/uL POC Glucose (mg/dL) (75-99) mg/dL Hemoglobin A1c (4.0-6.0) % Iron (65-175) ug/dL TIBC (228-460) ug/dL Ferritin (22.0-322.0) ng/mL Assessment and Plan Plan: 1. Difficulty breathing secondary to a large left pleural effusion and fluid overload most likely due to underlying end-stage renal disease and possible acute heart failure. Consults with cardiology and pulmonary medicine. Patient is undergoing hemodialysis today. Consults with pulmonary medicine, cardiology. Echocardiogram taken and report pending. Patient scheduled for thoracentesis today with Dr. Thompson. 2. End-stage renal disease. HD per nephrology. Continue Nephrocaps. Midodrine added by Dr. Clinton 5 mg 3 times daily. 3. Chronic atrial fibrillation and complete heart block status post pacemaker implantation with upgrade to AICD. Continue eliquis 2.5 mg twice daily 4. Hypertension. Continue Toprol-XL 50 mg morning and 100 at bedtime. 5. Hyperlipidemia. Continue Pravachol. 6. Diabetes mellitus type 2. Continue NovoLog scale. 7. Mineral disease of chronic kidney disease. Continue PhosLo. 8. Anemia of chronic kidney disease. 9. Previous history of cardiopulmonary arrest at [facility]. 10. GI prophylaxis. Protonix. 11. DVT prophylaxis. Eliquis. Patient will be admitted to the hospital for a minimum of 2 night stay. Discharge plan: To be determined Impression and plan of care have been directed as dictated by the signing physician. Brandi Naik nurse practitioner acting as scribe for signing physician.
[2019-06-06] MEDS: FLUDROCORTISONE 0.1 MG TAB PO SCH (08:19)
[2019-06-06] MEDS: ASPIRIN 81 MG PO SCH (08:19)
[2019-06-06] MEDS: APIXABAN 2.5 MG TABLET PO SCH ×2 (08:20→21:33)
[2019-06-06 08:31] VITALS: PULSE 60
--- NOTE | 2019-06-06 09:59 | P.PN ---
Subjective Patient is seen in follow-up for end-stage renal disease. He is maintained on hemodialysis on a Sunday schedule. Currently resting in bed. Blood pressures remain on the lower side. Dyspnea improved after thoracentesis yesterday. Vital signs are stable. General: The patient appeared well nourished and normally developed. HEENT: Head exam is unremarkable. Neck is without jugular venous distension. LUNGS: Lungs are clear to auscultation and percussion. Breath sounds decreased. HEART: Rate and Rhythm are regular. First and second heart sounds normal. No murmurs, rubs or gallops. ABDOMEN: Abdominal exam reveals normal bowel sounds. Non-tender and non- distended. No evidence of peritonitis. EXTREMITITES: No clubbing, cyanosis, or edema. Objective - Vital Signs Vital signs: Vital Signs Temp 97.6 F 06/06/19 08:00 Pulse 60 06/06/19 08:00 Resp 18 06/06/19 08:00 BP 93/51 06/06/19 08:00 Pulse Ox 97 06/06/19 08:00 Intake & Output 06/05/19 06/06/19 06/06/19 18:59 06:59 18:59 Intake Total 660 30 370 Output Total 2900 700 Balance -2240 -670 370 Weight 70.3 kg Intake: IV 30 30 10 Invasive Line 1 30 30 10 Oral 630 360 Output: Urine 700 700 Other 2200 Other: # Voids 3 1 - Labs CBC & Chem 7: 06/05/19 08:34 06/05/19 08:34 Labs: Abnormal Lab Results - Last 24 Hours (Table) 06/05/19 Range/Units 12:27 POC Glucose (mg/dL) 147 H (75-99) mg/dL Assessment and Plan Plan: Assessment: 1. End-stage renal disease maintained on hemodialysis on a Sunday schedule. 2. Dyspnea secondary to fluid overload. Better. Status post thoracentesis yesterday to 2.2 L drained. 3. Anemia of chronic kidney disease. High ferritin levels noted. Maintained on Aranesp. 4. Chronic kidney disease mineral bone disease maintained on phosphate binders and Sensipar. 5. History of cardiac arrest. Patient has an AICD. 6. Diastolic CHF with moderate tricuspid regurgitation and pulmonary hypertension. Plan: Hemodialysis today. Increase dose of midodrine to 10 mg 3 times daily.
--- NOTE | 2019-06-06 14:22 | CDI ---
Documentation Clarification Form Date: 06/06/2019 2:06:34 PM From: Roseanna Almeida RN CCDS Admit Date: 06/04/2019 2:56:00 PM Patient Name: Yazan Hanson I Visit Number: [id number] Discharge Date: ATTENTION: The Clinical Documentation Specialists (CDI) and [facility] Coding Staff appreciate your assistance in clarifying documentation. Please respond to the clarification below the line at the bottom and electronically sign. The CDI & [facility] Coding staff will review the response and follow-up if needed. Please note: Queries are made part of the Legal Health Record. If you have any questions, please contact the author of this message via ITS. Dr. Abhijit Clinton Diastolic CHF with moderate tricuspid regurgitation and pulmonary hypertension is documented in your progress note Dated 06/06/2019 History/Risk Factors: 78 year old male presents to the ED with shortness and fatigue. Medical hx of Atrial fibrillation ; Heart falure , DM ESRD, HTN Clinical Indicators: VS/Pulse OX: 112/65 65 97.4 20 93% ra BNP: 53308 Echocardiogram Results: Overall left ventricular systolic function is normal with, an EF between 55 60% . Chest X Ray: 06/03/2019 Increasing, now moderate left pleural effusion with adjacent atelectasis and / or consolidation . Treatment: Lasix ivp x1 metoprolol xl In your professional opinion, can you please clarify the acuity and type of CHF if known? Acute Diastolic Heart Failure Chronic Diastolic Heart Failure Acute on Chronic Diastolic Heart Failure Unable to Determine Other, please specify (Last Revision: February 2018) MTDD
--- NOTE | 2019-06-06 15:14 | P.PN ---
Subjective Progress Note Date: 06/06/19 This is an 78-year-old male patient of Dr. Forman with past medical history of chronic atrial fibrillation with complete heart block status post pacemaker implantation and upgrade to AICD, hypertension, hyperlipidemia, diabetes mellitus type 2, end-stage renal disease on dialysis Sunday via fistula. Patient states that he has been very weak for the past 1 week. He also complains of indigestion that has been going on for a couple weeks. He denies any chest pain. He does complain of shortness of breath. He complains of pain across the shoulder blades it feels tight. He states he has no energy and is difficult to take a deep breath. He denies any difficulty swallowing. He denies any increased pedal edema. No epigastric tenderness. He states he's had a regular bowel movement without blood or tarriness. Patient was last seen at Dr. Forman's office 3 weeks ago and saw Leatha GRANADOS at that time. Patient has had a workup in November of this year for syncopal episodes and underwent tilt table test that was negative. The patient came into [facility] emergency center for evaluation. He was afebrile, heart rate 65, blood pressure 112/65, pulse ox 93%. EKGs ventricular paced rhythm. White count was 7.9, hemoglobin 9.4. BUN 38 creatinine 6.27, chloride 96, CO2 32, sodium 141, potassium 3.8. Blood sugar 143. ProBNP 44,900. Troponin 0.055. Chest x-ray shows increasing now moderate left pleural effusion with adjacent atelectasis and/or consolidation. This was compared to chest x-ray from 01/16/2019. Patient was admitted to the cardiac stepdown unit, started on 1 dose of IV Lasix 40 mg and consult requested with nephrology, Dr. Thompson, Dr. Cuellar. Patient is currently undergoing hemodialysis. 06/05: Patient has been afebrile, heart rate 60, blood pressure 110/61, pulse ox 90% on room air. Repeat lab work reveals white count 11.3, hemoglobin 10.1, platelet count 290. Chloride 97, BUN 37 creatinine 5.89. Blood sugars run be tween 115 and 199. The patient is scheduled for thoracentesis today. Patient states that last night he got up to the bathroom was doing quite well he did not have to wear oxygen and pulse ox was stable. He was able to sleep all night without oxygen but this morning he has had increasing shortness of breath. He is complaining of neck pain is nonradiating heat and Tylenol will be ordered for this. He is scheduled for hemodialysis tomorrow and Dr. Clinton has added in Midodrine. Echocardiogram has been obtained and report is pending. 06/06: Patient underwent left-sided thoracentesis with removal of 2.2 L. A postprocedure chest x-ray showed no evidence of pneumothorax with improvement of the left-sided pleural effusion. Fluid was sent for cytology. Echocardiogram reveals EF of 55-60%, mild aortic valve sclerosis, no aortic stenosis, trace mitral regurgitation, moderate tricuspid regurgitation, moderate pulmonary hypertension. Cardiology has now signed off the case and following as needed. Patient remains afebrile, heart rate 59, blood pressure 98/61, pulse ox 97% on room air. Patient states that he is breathing very much better from yesterday. He is off oxygen pulse oxing 96%. He states he was hungry for the first time this morning and ate well for breakfast. Dr. Clinton has increased Midodrine to 10 mg 3 times daily. PT and OT have been added. Patient is planning to return home. Dr. Thompson has cleared patient for discharge on Sunday. Objective - Vital Signs Vital signs: Vital Signs Temp 97.9 F 06/06/19 04:00 Pulse 0 L 06/06/19 04:00 Resp 18 06/06/19 04:00 BP 98/61 06/06/19 04:00 Pulse Ox 97 06/06/19 04:00 Intake & Output 06/05/19 06/06/19 06/06/19 18:59 06:59 18:59 Intake Total 660 30 Output Total 2900 700 Balance -2240 -670 Weight 70.3 kg Intake: IV 30 30 Invasive Line 1 30 30 Oral 630 Output: Urine 700 700 Other 2200 Other: # Voids 3 1 - Exam Review of Systems Constitutional: Reports fatigue, Reports lethargy, Reports poor appetite, Reports weakness, Denies chills, Denies fever Ears, nose, mouth and throat: Denies dysphagia, Denies nasal discharge, Denies vertigo Cardiovascular: Reports dyspnea on exertion, Reports shortness of breath, Denies chest pain, Denies leg edema Respiratory: Denies dyspnea, Denies cough, Denies cough with sputum, Denies excessive sputum, Denies hemoptysis, Denies home oxygen, Denies wheezing Gastrointestinal: Denies abdominal pain, Denies diarrhea, Denies melena, Denies nausea, Denies vomiting Genitourinary: Denies dysuria, Denies urinary retention Musculoskeletal: Reports muscle weakness, Denies frequent falls, Denies gait dy sfunction, Denies myalgias Integumentary: Denies pruritus, Denies rash, Denies wounds Neurological: Denies aphasia, Denies change in mentation, Denies confusion, Denies numbness, Denies seizures, Denies syncope, Denies weakness Psychiatric: Denies anxiety, Denies depression Endocrine: Denies fatigue, Denies weight change Gen: This is an 78-year-old male. The patient is resting in bed and appears to be in no distress. Patient appears anxious as well. HEENT: Head is atraumatic, normocephalic. Pupils equal, round. Sclerae is anicteric. NECK: Supple. No JVD. No lymphadenopathy. No thyromegaly. LUNGS: Clear. No wheezes or rhonchi. No intercostal retractions. HEART: Regular rate and rhythm. Systolic murmur. ABDOMEN: Soft. Bowel sounds are present. No masses. No tenderness. EXTREMITIES: Trace bilateral pedal edema. No calf tenderness. NEUROLOGICAL: Patient is awake, alert and oriented x3. Cranial nerves 2 through 12 are grossly intact. - Labs CBC & Chem 7: 06/05/19 08:34 06/05/19 08:34 Labs: Abnormal Lab Results - Last 24 Hours (Table) 06/05/19 06/05/19 06/05/19 Range/Units 08:34 08:34 12:27 WBC 11.3 H (3.8-10.6) k/uL RBC 3.47 L (4.30-5.90) m/uL Hgb 10.1 L (13.0-17.5) gm/dL Hct 32.0 L (39.0-53.0) % Neutrophils # 9.0 H (1.3-7.7) k/uL Chloride 97 L (98-107) mmol/L BUN 37 H (9-20) mg/dL Creatinine 5.89 H (0.66-1.25) mg/dL Glucose 199 H (74-99) mg/dL POC Glucose (mg/dL) 147 H (75-99) mg/dL Calcium 8.1 L (8.4-10.2) mg/dL Assessment and Plan Plan: 1. Difficulty breathing secondary to a large left pleural effusion and fluid overload most likely due to underlying end-stage renal disease and possible acute heart failure. Consults with cardiology and pulmonary medicine. Patient is undergoing hemodialysis today. Consults with pulmonary medicine, cardiology. Echocardiogram as above. Patient is status post thoracentesis with Dr. Thompson. Cardiology has signed off. 2. End-stage renal disease. HD per nephrology. Continue Nephrocaps. Midodrine added by Dr. Clinton and increased to 10 mg 3 times daily. 3. Chronic atrial fibrillation and complete heart block status post pacemaker implantation with upgrade to AICD. Continue eliquis 2.5 mg twice daily 4. Hypertension. Continue Toprol-XL 50 mg morning and 100 at bedtime. 5. Hyperlipidemia. Continue Pravachol. 6. Diabetes mellitus type 2. Continue NovoLog scale. 7. Mineral disease of chronic kidney disease. Continue PhosLo. 8. Anemia of chronic kidney disease. 9. Previous history of cardiopulmonary arrest at [facility]. 10. GI prophylaxis. Protonix. 11. DVT prophylaxis. Eliquis. Discharge plan: Home on Sunday. Impression and plan of care have been directed as dictated by the signing physician. Brandi Naik nurse practitioner acting as scribe for signing physician.
--- NOTE | 2019-06-06 15:31 | P.PN ---
Subjective Progress Note Date: 06/06/19 78-year-old male patient who is coming in with exertional dyspnea. The patient has been having worsening shortness of breath over this past few days and has become dyspneic with limited amount of activity. For that reason he end up coming to the hospital. No significant swelling lower extremities. No chest pain. No cough or sputum production. No symptoms of pneumonia. This patient has end-stage renal disease and he is on hemodialysis via a AV fistula in the right upper extremity 3 times a week, MWF, and the patient has been undergoing his dialysis without any major difficulties and his been compliant. His chest x-ray shows a large left-sided pleural effusion. This was noted on previous c hest x-rays however this has progressed significantly over this past 4-5 months. The patient's hemoglobin at time of admission was at 9.5. No evidence of any GI bleeding. No angina. No palpitations. The patient gives a very complicated history of a cardiac arrest that occurred approximately 6 months ago and this was treated [facility] in [facility]. The patient had a prolonged hospitalization. During his hospital stay he underwent cardiac catheterization and ultimately was given an AICD. He is known to have chronic atrial fibrillation. He is baseline ejection fraction is not known to me at this point in time. Denies having previous myocardial infarctions or heart attacks. During this current admission, the patient's BNP level was elevated at 44,009 100. He is currently on Eliquis regarding chronic atrial fibrillation. On 06/06/2019 the patient is feeling better than the patient is less short of breath compared to yesterday. He is resting comfortably in bed as he is undergoing his hemodialysis. As mentioned earlier, I performed a thoracentesis on this patient. A total of 2.3 L of bloody effusion was drained from the right lung. This was done without any complications. There is no evidence of any pneumothorax at this point in time. No fever. No chills. Echo showed ejection fraction of 55-60% with mild aortic sclerosis without stenosis. Currently the patient on room air oxygen. Blood pressure was/drop in her this morning and the patient was placed again on midodrine 10 mg by mouth 3 times a day. Awaiting pleural fluid cytology. Objective - Vital Signs Vital signs: Vital Signs Temp 97.7 F 06/06/19 11:24 Pulse 60 06/06/19 11:25 Resp 18 06/06/19 11:25 BP 102/53 06/06/19 11:24 Pulse Ox 96 06/06/19 11:24 Intake & Output 06/05/19 06/06/19 06/06/19 18:59 06:59 18:59 Intake Total 660 30 700 Output Total 2900 700 Balance -2240 -670 700 Weight 70.3 kg Intake: IV 30 30 20 Invasive Line 1 30 30 20 Oral 630 680 Output: Urine 700 700 Other 2200 Other: # Voids 3 1 - Exam Gen. appearance, comfortable likely distress Head exam was generally normal. There was no scleral icterus or corneal arcus. Mucous membranes were moist. Neck was supple and without jugular venous distension, thyromegaly, or carotid bruits. Carotids were easily palpable bilaterally. There was no adenopathy. Lungs sounds are diminished in the left lung base along with dullness to percussion. The overall air entry is improved significantly after the patient underwent his left-sided thoracentesis. The patient is a pacemaker/defibrillator over the left anterior chest area. No wheezes or rhonchi. Few crackles in the right lung base Cardiac exam revealed the PMI to be normally situated and sized. The rhythm was irregular, consistent with atrial fibrillation and no extrasystoles were noted during several minutes of auscultation. The first and second heart sounds were normal and physiologic splitting of the second heart sound was noted. There were no murmurs, rubs, clicks, or gallops. Abdominal exam revealed normal bowel sounds. The abdomen was soft, non-tender, and without masses, organomegaly, or appreciable enlargement of the abdominal aorta. Extremities revealed a functioning AV fistula in the right upper extremity. Otherwise the rest of the extremities are within normal limits. No cyanosis. No clubbing. Examination of the skin revealed no evidence of significant rashes, suspicious appearing nevi or other concerning lesions. - Labs CBC & Chem 7: 06/05/19 08:34 06/05/19 08:34 Assessment and Plan Plan: 1 exertional dyspnea, multifactorial. Nevertheless, will be related to worsening shortness of breath is probably related to the development of a large left-sided pleural effusion that was present on previous chest x-rays and there has been interval worsening the size of the pleural fluid. Thoracentesis was performed and the patient was found to have a low the pleural effusion on the left that was drained without any major complication. A total of 2.3 L of fluid was aspirated that was bloody. Consider traumatic effusion on the left. Consider malignancy. 2 previous history of cardiopulmonary arrest, treated at [facility] 3 history of AICD placement 4 chronic atrial fibrillation 5 questionable history of coronary artery disease 6 incisional disease on hemodialysis 3 times a week MWF 7 hypertension 8 hyperlipidemia 9 long-term antibiotic ventilation with Eliquis regarding chronic atrial fibrillation 10 chronic anemia, which is attributed to the chronic kidney disease Plan Continue hemodialysis. Add midodrine. Awaiting pleural fluid cytology. Shortness of breath improved. The patient on room air. Resume anticoagulants with Eliquis. We'll follow
[2019-06-06] MEDS: METOPROLOL SUCCINATE (ER) 50 MG TAB.ER.24H PO SCH (17:06)
[2019-06-06] MEDS: CINACALCET 30 MG TAB PO SCH (21:33)
[2019-06-06] MEDS: FOLIC ACID-VIT B COMPLEX-VIT C 1 CAP PO SCH (21:33)
[2019-06-06] MEDS: PRAVASTATIN SODIUM 20 MG TAB PO SCH (21:33)
[2019-06-06] MEDS: ALPRAZolam 0.5 MG TAB PO PRN (22:37)
[2019-06-07 06:12] LABS: Glucose,Whole Blood 118 mg/dL (75-99)
[2019-06-07 06:41] LABS: Basophils # (A) 0.1 k/uL (0-0.2); Basophils % (A) 1 %; Eosinophils # (A) 0.3 k/uL (0-0.7); Eosinophils % (A) 2 %; HCT 34.2 % (39.0-53.0); HGB 10.5 gm/dL (13.0-17.5); Lymphocytes # (A) 2.1 k/uL (1.0-4.8); Lymphocytes % (A) 21 %; MCH 28.2 pg (25.0-35.0); MCHC 30.7 g/dL (31.0-37.0); Mean Platelet Volume 6.2; Monocytes # (A) 0.6 k/uL (0-1.0); Monocytes % (A) 6 %; Neutrophils % (A) 68 %; Platelet Count 279 k/uL (150-450); RBC 3.72 m/uL (4.30-5.90); RDW 15.6 % (11.5-15.5); WBC 10.3 k/uL (3.8-10.6)
[2019-06-07] MEDS: INSULIN ASPART (NovoLOG) 100 UNIT/ML VIAL SQ SCH ×2 (06:51→12:14)
[2019-06-07] MEDS: CALCIUM ACETATE 667 MG CAP PO SCH ×2 (07:19→12:14)
[2019-06-07] MEDS: PANTOPRAZOLE 40 MG TABLET PO SCH (07:19)
[2019-06-07] MEDS: MIDODRINE 5 MG TAB PO SCH ×2 (07:19→12:14)
[2019-06-07 07:21] LABS: Calcium 8.3 mg/dL (8.4-10.2); Potassium 3.9 mmol/L (3.5-5.1)
[2019-06-07] MEDS: FLUDROCORTISONE 0.1 MG TAB PO SCH (08:59)
[2019-06-07] MEDS: ASPIRIN 81 MG PO SCH (09:00)
[2019-06-07] MEDS: METOPROLOL SUCCINATE (ER) 50 MG TAB.ER.24H PO SCH (09:00)
[2019-06-07] MEDS: APIXABAN 2.5 MG TABLET PO SCH (09:00)
[2019-06-07 09:06] VITALS: RESP 16; TEMP 98.1
--- NOTE | 2019-06-07 09:52 | P.PN ---
Subjective Progress Note Date: 06/07/19 Seen and examined for the follow-up of ESRD. Had dialysis yesterday. Feels better today. Objective - Vital Signs Vital signs: Vital Signs Temp 98.1 F 06/07/19 09:02 Pulse 60 06/07/19 09:02 Resp 16 06/07/19 09:02 BP 106/53 06/07/19 09:02 Pulse Ox 97 06/07/19 09:02 Intake & Output 06/06/19 06/07/19 06/07/19 18:59 06:59 18:59 Intake Total 940 900 360 Output Total 1999 Balance -1060 900 360 Weight 68.8 kg Intake: IV 20 Invasive Line 1 20 Oral 920 900 360 Output: Hemodialysis 1999 - Exam No acute distress S1-S2 heard Lungs clear Upper arm AVG No edema - Labs CBC & Chem 7: 06/07/19 05:41 06/07/19 05:41 Labs: Abnormal Lab Results - Last 24 Hours (Table) 06/07/19 06/07/19 06/07/19 Range/Units 05:41 05:41 06:11 RBC 3.72 L (4.30-5.90) m/uL Hgb 10.5 L (13.0-17.5) gm/dL Hct 34.2 L (39.0-53.0) % MCHC 30.7 L (31.0-37.0) g/dL RDW 15.6 H (11.5-15.5) % BUN 34 H (9-20) mg/dL Creatinine 5.52 H (0.66-1.25) mg/dL Glucose 106 H (74-99) mg/dL POC Glucose (mg/dL) 118 H (75-99) mg/dL Calcium 8.3 L (8.4-10.2) mg/dL Assessment and Plan Assessment: #1 ESRD on hemodialysis MWF schedule. #2 dyspnea secondary to fluid overload status post thoracentesis with 2.2 L of fluid removed. #3 anemia with chronic kidney disease #4 cardiac arrest status post AICD. #5 diastolic CHF. Plan: #1 plan hemodialysis Sunday as per outpatient schedule. #2 ESRD medications #3 stable from nephrology to be discharged to be followed up in the clinic. #4 blood pressure still marginal continue with midodrine at discharge
[2019-06-07 11:50] VITALS: BP 101/55
[2019-06-07 12:00] LABS: Glucose,Whole Blood 171 mg/dL (75-99)
--- NOTE | 2019-06-07 13:48 | P.PN ---
Subjective Progress Note Date: 06/07/19 Principal diagnosis: Dyspnea, pleural effusion 78-year-old male patient who is coming in with exertional dyspnea. The patient has been having worsening shortness of breath over this past few days and has become dyspneic with limited amount of activity. For that reason he end up coming to the hospital. No significant swelling lower extremities. No chest pain. No cough or sputum production. No symptoms of pneumonia. This patient has end-stage renal disease and he is on hemodialysis via a AV fistula in the right upper extremity 3 times a week, MW, and the patient has been undergoing his dialysis without any major difficulties and his been compliant. His chest x-ray shows a large left-sided pleural effusion. This was noted on previous chest x-rays however this has progressed significantly over this past 4-5 months. The patient's hemoglobin at time of admission was at 9.5. No evidence of any GI bleeding. No angina. No palpitations. The patient gives a very complicated history of a cardiac arrest that occurred approximately 6 months ago and this was treated [facility]. The patient had a prolonged hospitalization. During his hospital stay he underwent cardiac catheterization and ultimately was given an AICD. He is known to have chronic atrial fibrillation. He is baseline ejection fraction is not known to me at this point in time. Denies having previous myocardial infarctions or heart attacks. During this current admission, the patient's BNP level was elevated at 44,009 100. He is currently on Eliquis regarding chronic atrial fibrillation. On 06/05/2019 patient seen in follow-up on selective care unit. Today patient had a left-sided thoracentesis with removal of 2.2 L of dark sanguineous fluid, follow-up chest x-ray was obtained showing some residual left pleural effusion, which could not be completely drained related to patient having chest discomfort. No evidence of postprocedural pneumothorax. Fluid was sent for cytology. He is on room air, with a pulse ox of 98%, patient is afebrile, hemodynamically stable, lung sounds are diminished at the bases, with improvement in the aeration following the left-sided thoracentesis. No fever or chills, today's labs have been reviewed, showing white blood cell count of 11.3, hemoglobin of 10.1, sodium of 137, potassium is 3.9, chloride is 97, CO2 is 26, BUN is 37, creatinine is improving, down to 5.89 On 06/07/2018 patient seen in follow-up on selective care unit, he is awake and alert, in no acute distress. patient underwent left-sided thoracentesis on 06/05/2019, pleural fluid cytology was negative for malignancy. Room air pulse ox is 98%, vital signs are stable, no specific complaints, lung sounds are clear. Patient is being discharged home today. Objective - Vital Signs Vital signs: Vital Signs Temp 98.1 F 06/07/19 09:02 Pulse 60 06/07/19 11:48 Resp 16 06/07/19 11:48 BP 101/55 06/07/19 11:48 Pulse Ox 98 06/07/19 11:48 Intake & Output 06/06/19 06/07/19 06/07/19 18:59 06:59 18:59 Intake Total 940 900 360 Output Total 2000 Balance -1060 900 360 Weight 68.8 kg Intake: IV 20 Invasive Line 1 20 Oral 920 900 360 Output: Hemodialysis 2000 - Exam GENERAL EXAM: Alert, pleasant, 78-year-old white male, on room air, comfortable in no apparent distress. HEAD: Normocephalic/atraumatic. EYES: Normal reaction of pupils, equal size. Conjunctiva pink, sclera white. NOSE: Clear with pink turbinates. THROAT: No erythema or exudates. NECK: No masses, no JVD, no thyroid enlargement, no adenopathy. CHEST: No chest wall deformity. Symmetrical expansion. LUNGS: Equal air entry with diminished breath sounds at the left base, with dullness to percussion, with improvement in the air entry following the left- sided thoracentesis CVS: Regular rate and rhythm, normal S1 and S2, no gallops, no murmurs, no rubs ABDOMEN: Soft, nontender. No hepatosplenomegaly, normal bowel sounds, no guarding or rigidity. EXTREMITIES: No clubbing, no edema, no cyanosis, 2+ pulses and upper and lower extremities. MUSCULOSKELETAL: Muscle strength and tone normal. SPINE: No scoliosis or deformity SKIN: No rashes CENTRAL NERVOUS SYSTEM: Alert and oriented -3. No focal deficits, tone is normal in all 4 extremities. PSYCHIATRIC: Alert and oriented -3. Appropriate affect. Intact judgment and insight. - Labs CBC & Chem 7: 06/07/19 05:41 06/07/19 05:41 Labs: Abnormal Lab Results - Last 24 Hours (Table) 06/07/19 06/07/19 06/07/19 Range/Units 05:41 05:41 06:11 RBC 3.72 L (4.30-5.90) m/uL Hgb 10.5 L (13.0-17.5) gm/dL Hct 34.2 L (39.0-53.0) % MCHC 30.7 L (31.0-37.0) g/dL RDW 15.6 H (11.5-15.5) % BUN 34 H (9-20) mg/dL Creatinine 5.52 H (0.66-1.25) mg/dL Glucose 106 H (74-99) mg/dL POC Glucose (mg/dL) 118 H (75-99) mg/dL Calcium 8.3 L (8.4-10.2) mg/dL 06/07/19 Range/Units 11:53 RBC (4.30-5.90) m/uL Hgb (13.0-17.5) gm/dL Hct (39.0-53.0) % MCHC (31.0-37.0) g/dL RDW (11.5-15.5) % BUN (9-20) mg/dL Creatinine (0.66-1.25) mg/dL Glucose (74-99) mg/dL POC Glucose (mg/dL) 171 H (75-99) mg/dL Calcium (8.4-10.2) mg/dL Assessment and Plan Plan: Assessment: 1 exertional dyspnea, multifactorial. Nevertheless, will be related to worsening shortness of breath is probably related to the development of a large left-sided pleural effusion that was present on previous chest x-rays and there has been interval worsening the size of the pleural fluid. Consider CHF. Patient underwent left-sided thoracentesis today on 06/05/2019 with removal of 2.2 L of dark sanguinous fluid which was sent for cytology, which was negative for malignant cells 2 previous history of cardiopulmonary arrest, treated at [facility] 3 history of AICD placement 4 chronic atrial fibrillation 5 questionable history of coronary artery disease 6 incisional disease on hemodialysis 3 times a week MWF 7 hypertension 8 hyperlipidemia 9 long-term antibiotic ventilation with Eliquis regarding chronic atrial fibrillation 10 chronic anemia, which is attributed to the chronic kidney disease Plan: Patient is stable from pulmonary perspective, breathing easier, pleural fluid cytology was negative, patient is on room air, denies any shortness of breath, no chest pain, he is going home today, he was instructed for to give our office a call in case he develops any further difficulty breathing. I performed a history & physical examination of the patient and discussed their management with my nurse practitioner, Ute Lyle. I reviewed the nurse practitioner's note and agree with the documented findings and plan of care. Lung sounds are positive for diminished breath sounds. The findings and the impression was discussed with the patient. I attest to the documentation by the nurse practitioner. Time with Patient: Less than 30
--- NOTE | 2019-06-07 22:37 | P.DS ---
Providers Date of admission: 06/04/19 14:56 Expected date of discharge: 06/07/19 Attending physician: Mau Velasco Consults: 06/03/19 14:40 Consult Physician Routine Consulting Provider: Mio Thompson Consult Reason/Comments: Pleural effusion Do you want consulting provider notified?: Yes Consult Physician Routine Consulting Provider: Dana Zapien Consult Reason/Comments: Dialysis Do you want consulting provider notified?: Yes 06/03/19 15:03 Consult Physician Routine Consulting Provider: Preston Cuellar Consult Reason/Comments: CHF Do you want consulting provider notified?: Yes Primary care physician: [facility] Course: This is an 78-year-old male patient of Dr. Forman with past medical history of chronic atrial fibrillation with complete heart block status post pacemaker implantation and upgrade to AICD, hypertension, hyperlipidemia, diabetes mellitus type 2, end-stage renal disease on dialysis Sunday via fistula. Patient states that he has been very weak for the past 1 week. He also complains of indigestion that has been going on for a couple weeks. He denies any chest pain. He does complain of shortness of breath. He complains of pain across the shoulder blades it feels tight. He states he has no energy and is difficult to take a deep breath. He denies any difficulty swallowing. He denies any increased pedal edema. No epigastric tenderness. He states he's had a regular bowel movement without blood or tarriness. Patient was last seen at Dr. Forman's office 3 weeks ago and saw Leatha GRANADOS at that time. Patient has had a workup in November of this year for syncopal episodes and underwent tilt table test that was negative. The patient came into [facility] emergency center for e valuation. He was afebrile, heart rate 65, blood pressure 112/65, pulse ox 93%. EKGs ventricular paced rhythm. White count was 7.9, hemoglobin 9.4. BUN 38 creatinine 6.27, chloride 96, CO2 32, sodium 141, potassium 3.8. Blood sugar 143. ProBNP 44,900. Troponin 0.055. Chest x-ray shows increasing now moderate left pleural effusion with adjacent atelectasis and/or consolidation. This was compared to chest x-ray from 01/16/2019. Patient was admitted to the cardiac stepdown unit, started on 1 dose of IV Lasix 40 mg and consult requested with nephrology, Dr. Thompson, Dr. Cuellar. Patient is currently undergoing hemodialysis. 06/05: Patient has been afebrile, heart rate 60, blood pressure 110/61, pulse ox 90% on room air. Repeat lab work reveals white count 11.3, hemoglobin 10.1, platelet count 290. Chloride 97, BUN 37 creatinine 5.89. Blood sugars run between 115 and 199. The patient is scheduled for thoracentesis today. Patient states that last night he got up to the bathroom was doing quite well he did not have to wear oxygen and pulse ox was stable. He was able to sleep all night without oxygen but this morning he has had increasing shortness of breath. He is complaining of neck pain is nonradiating heat and Tylenol will be ordered for this. He is scheduled for hemodialysis tomorrow and Dr. Clinton has added in Midodrine. Echocardiogram has been obtained and report is pending. 06/06: Patient underwent left-sided thoracentesis with removal of 2.2 L. A postprocedure chest x-ray showed no evidence of pneumothorax with improvement of the left-sided pleural effusion. Fluid was sent for cytology. Echocardiogram reveals EF of 55-60%, mild aortic valve sclerosis, no aortic stenosis, trace mitral regurgitation, moderate tricuspid regurgitation, moderate pulmonary hypertension. Cardiology has now signed off the case and following as needed. Patient remains afebrile, heart rate 59, blood pressure 98/61, pulse ox 97% on room air. Patient states that he is breathing very much better from yesterday. He is off oxygen pulse oxing 96%. He states he was hungry for the first time this morning and ate well for breakfast. Dr. Clinton has increased Midodrine to 10 mg 3 times daily. PT and OT have been added. Patient is planning to return home. Dr. Thompson has cleared patient for discharge on Sunday. 06/07: Patient's doing better, patient does not have any chest pain shortness of breath no pleurisy, is at bedside, has been cleared by cardiology and pulmonary for discharge, patient denies any orthostasis, no lightheadedness, vitals are stable, FINAL DIAGNOSES 1. Difficulty breathing secondary to a large left pleural effusion and fluid overload most likely due to underlying end-stage renal disease and possible ac vik heart failure improved symptoms. Consults with cardiology and pulmonary medicine. Maintained on hemodialysis Consults with pulmonary medicine, cardiology. Echocardiogram as above. Patient is status post thoracentesis with Dr. Thompson. Cardiology has signed off. 2. End-stage renal disease. HD per nephrology. Continue Nephrocaps. Midodrine added by Dr. Clinton and increased to 10 mg 3 times daily. 3. Chronic atrial fibrillation and complete heart block status post pacemaker implantation with upgrade to AICD. Continue eliquis 2.5 mg twice daily 4. Hypertension. Continue Toprol-XL 50 mg morning and 100 at bedtime. 5. Hyperlipidemia. Continue Pravachol. 6. Diabetes mellitus type 2. Continue NovoLog scale. 7. Mineral disease of chronic kidney disease. Continue PhosLo. 8. Anemia of chronic kidney disease. 9. Previous history of cardiopulmonary arrest at [facility]. 10. GI prophylaxis. Protonix. 11. DVT prophylaxis. Eliquis. Discharge condition stable, home discharge no skilled therapies identified, become homecare for nursing follow-up medical management Patient Condition at Discharge: Fair Plan - Discharge Summary New Discharge Prescriptions: New Midodrine [ProAmatine] 10 mg PO AC-TID #90 tab Metoprolol Succinate (ER) [Toprol XL] 50 mg PO QAM tab.er.24h Darbepoetin Larry [Aranesp] 40 mcg SQ Q7D syringe Continue Omeprazole 20 mg PO DAILY Renal Vitamin 1 tab PO HS Apixaban [Eliquis] 2.5 mg PO BID Pravastatin Sodium [Pravachol] 20 mg PO HS Fludrocortisone [Florinef] 0.05 mg PO DAILY Cinacalcet HCl [Sensipar] 60 mg PO HS Calcium Acetate [PhosLo] 667 mg PO BID Calcium Acetate [PhosLo] 1,334 mg PO QAM Aspirin EC [Ecotrin Low Dose] 81 mg PO DAILY Discontinued Metoprolol Succinate [Toprol Xl] 50 mg PO QAM Metoprolol Succinate [Toprol Xl] 100 mg PO HS Discharge Medication List Omeprazole 20 mg PO DAILY 10/19/18 [History] Apixaban [Eliquis] 2.5 mg PO BID 06/03/19 [History] Aspirin EC [Ecotrin Low Dose] 81 mg PO DAILY 06/03/19 [History] Calcium Acetate [PhosLo] 1,334 mg PO QAM 06/03/19 [History] Calcium Acetate [PhosLo] 667 mg PO BID 06/03/19 [History] Cinacalcet HCl [Sensipar] 60 mg PO HS 06/03/19 [History] Fludrocortisone [Florinef] 0.05 mg PO DAILY 06/03/19 [History] Pravastatin Sodium [Pravachol] 20 mg PO HS 06/03/19 [History] Renal Vitamin 1 tab PO HS 06/03/19 [History] Darbepoetin Larry [Aranesp] 40 mcg SQ Q7D syringe 06/07/19 [Rx] Metoprolol Succinate (ER) [Toprol XL] 50 mg PO QAM tab.er.24h 06/07/19 [Rx] Midodrine [ProAmatine] 10 mg PO AC-TID #90 tab 06/07/19 [Rx] Follow up Appointment(s)/Referral(s): René Hdz MD [STAFF PHYSICIAN] - 3 Weeks (please call office to make follow- up appointment ) [facility], [NON-STAFF] - 1-2 Days Pernell Forman MD [Primary Care Provider] - 06/12/19 10:30 am ( with [employer]) Mio Thompson MD [STAFF PHYSICIAN] - 07/11/19 10:00 am (Sunday -earliest available appointment) Patient Instructions/Handouts: Midodrine (By mouth), Heart Failure (DC) Activity/Diet/Wound Care/Special Instructions: Dr Thompson would like follow up xray for 2 weeks out, please schedule with office at 06/10 visit Discharge Disposition: HOME SELF-CARE
== END 2019-06-07 16:38 | disposition home or self-care (01) | DRG 291 ==
LOC: EC 10:29 → 3SCARD 14:56 → INTOOBSV 14:56 → 3SCARD 16:41 → OBSVTOIN 22:06 → INTOOBSV 22:06 → OBSVTOIN 06-04 14:56
PROVIDERS: ADMIT Internal Medicine; ATTEND Internal Medicine
PROC: 5A1D70Z Performance of Urinary Filtration, Intermittent, Less than 6 Hours Per Day (ICD-10-PCS; 2019-06-04)
PROC: 0W9B3ZX Drainage of Left Pleural Cavity, Percutaneous Approach, Diagnostic (ICD-10-PCS; principal; 2019-06-05)
DX: I13.2 Hypertensive heart and chronic kidney disease with heart failure and with stage 5 chronic kidney disease, or end stage renal disease (principal); I50.31 Acute diastolic (congestive) heart failure; N18.6 End stage renal disease; I44.2 Atrioventricular block, complete; J90 Pleural effusion, not elsewhere classified; D63.1 Anemia in chronic kidney disease; E11.22 Type 2 diabetes mellitus with diabetic chronic kidney disease; E78.5 Hyperlipidemia, unspecified; F41.9 Anxiety disorder, unspecified; I27.20 Pulmonary hypertension, unspecified; I25.10 Atherosclerotic heart disease of native coronary artery without angina pectoris; I25.2 Old myocardial infarction; I08.3 Combined rheumatic disorders of mitral, aortic and tricuspid valves; I48.2 Chronic atrial fibrillation; Z86.74 Personal history of sudden cardiac arrest; M89.8X9 Other specified disorders of bone, unspecified site; Z79.01 Long term (current) use of anticoagulants; Z79.82 Long term (current) use of aspirin; Z79.899 Other long term (current) drug therapy; Z80.1 Family history of malignant neoplasm of trachea, bronchus and lung; Z80.8 Family history of malignant neoplasm of other organs or systems; Z95.810 Presence of automatic (implantable) cardiac defibrillator; Z99.2 Dependence on renal dialysis
CPT/HCPCS: 36415; 71045; 71046; 80048; 80053; 82728; 83036; 83540; 83550; 83735; 83880; 84484; 85025; 85610; 85730; 88108; 88305; 89050; 90935; 93005; 93306; 99285

== ENCOUNTER 2019-11-20 09:41 | Emergency (ER) | payer MEDICARE ==
[2019-11-20 09:45] VITALS: TEMP 97.5
[2019-11-20 11:09] LABS: Basophils % (A) 0 %; Eosinophils % (A) 0 %; HCT 33.2 % (39.0-53.0); HGB 10.8 gm/dL (13.0-17.5); Lymphocytes # (A) 0.8 k/uL (1.0-4.8); Lymphocytes % (A) 10 %; MCHC 32.5 g/dL (31.0-37.0); MCV 95.4 fL (80.0-100.0); Mean Platelet Volume 6.8; Monocytes # (A) 0.5 k/uL (0-1.0); Monocytes % (A) 6 %; Neutrophils # (A) 6.8 k/uL (1.3-7.7); Neutrophils % (A) 81 %; Platelet Count 206 k/uL (150-450); RBC 3.48 m/uL (4.30-5.90); RDW 15.7 % (11.5-15.5); WBC 8.4 k/uL (3.8-10.6)
[2019-11-20 11:17] LABS: Albumin 4.5 g/dL (3.5-5.0); Calcium 9.1 mg/dL (8.4-10.2); Potassium 4.7 mmol/L (3.5-5.1); Total Bilirubin 1.3 mg/dL (0.2-1.3); Total Protein 7.5 g/dL (6.3-8.2)
--- NOTE | 2019-11-20 11:21 | XR ---
EXAMINATION TYPE: XR KUB DATE OF EXAM: 11/20/2019 11:14 AM CLINICAL HISTORY: Abdominal pain TECHNIQUE: Single upright image of the abdomen is obtained. COMPARISON: None. FINDINGS: Few scattered air-fluid levels are seen within nondilated small bowel. No dilated large bow el. Extensive atherosclerosis is seen. Trace left pleural effusion is present with enlarged cardiac m ediastinal silhouette. Osseous structures are grossly intact. No pneumoperitoneum. IMPRESSION: Few air-fluid levels within nondilated small bowel. Findings favor mild small bowel ileus .
[2019-11-20] MEDS ORDERED: SODIUM CHLORIDE 0.9% 500 ML 500 ML IV STA (11:29)
--- NOTE | 2019-11-20 11:42 | ED ---
General Adult HPI - General Chief complaint: Nausea/Vomiting/Diarrhea Stated complaint: vomiting/dehydration Time Seen by Provider: 11/20/19 09:54 Source: patient, RN notes reviewed Mode of arrival: ambulatory Limitations: no limitations - History of Present Illness Initial comments: 79-year-old male with a past medical history of diabetes mellitus, hemodialysis Sunday presents to the emergency department for a chief complaint of nausea vomiting. Patient has had nausea and vomiting for the past 3-4 days. States he has generalized abdominal discomfort as well. States he has had abdominal discomfort for one month. Denies diarrhea. States he has not had a normal bowel movement in several days but is passing gas.Patient has no other complaints at this time including shortness of breath, chest pain, headache, or visual changes. - Related Data Home Medications Medication Instructions Recorded Confirmed Omeprazole 20 mg PO DAILY 10/19/18 06/03/19 Apixaban [Eliquis] 2.5 mg PO BID 06/03/19 06/03/19 Aspirin EC [Ecotrin Low Dose] 81 mg PO DAILY 06/03/19 06/03/19 Calcium Acetate [PhosLo] 1,334 mg PO QAM 06/03/19 06/03/19 Calcium Acetate [PhosLo] 667 mg PO BID 06/03/19 06/03/19 Cinacalcet HCl [Sensipar] 60 mg PO HS 06/03/19 06/03/19 Fludrocortisone [Florinef] 0.05 mg PO DAILY 06/03/19 06/03/19 Pravastatin Sodium [Pravachol] 20 mg PO HS 06/03/19 06/03/19 Renal Vitamin 1 tab PO HS 06/03/19 06/03/19 Previous Rx's Medication Instructions Recorded Darbepoetin Larry [Aranesp] 40 mcg SQ Q7D syringe 06/07/19 Metoprolol Succinate (ER) [Toprol 50 mg PO QAM tab.er.24h 06/07/19 XL] Midodrine [ProAmatine] 10 mg PO AC-TID #90 tab 06/07/19 Allergies Allergy/AdvReac Type Severity Reaction Status Date / Time No Known Allergies Allergy Verified 11/20/19 09:46 Review of Systems ROS Statement: Those systems with pertinent positive or pertinent negative responses have been documented in the HPI. ROS Other: All systems not noted in ROS Statement are negative. Past Medical History Past Medical History: Atrial Fibrillation, Heart Failure, Diabetes Mellitus, Dialysis, Hypertension, Myocardial Infarction ([place]), Renal Disease, Skin Disorder, Syncope Additional Past Medical History / Comment(s): CMP, HAS PACEMAKER. NO RX FOR DM NOW. HEMODIALYSIS VIA FISTULA, MON, WED, FRI. SKIN TEARS EASILY. 10/19/18 TO EC R/T SYNCOPAL EPISODE, INJURY/LACERATION TO HEAD. SEE DR SANDHU'S H&P. Last Myocardial Infarction Date:: 2017 History of Any Multi-Drug Resistant Organisms: None Reported Past Surgical History: Pacemaker Additional Past Surgical History / Comment(s): 2 ABD SURGERIES R/T INJ. PACEMAKER ICD MEDTRONIC. FISTULA. Patient has a Medtronic ICD implanted November 2018 Past Anesthesia/Blood Transfusion Reactions: No Reported Reaction Type of Cardiac Device: Permanent Pacemaker Device Placement Date:: 10/10/12 Past Psychological History: Anxiety Smoking Status: Never smoker Past Alcohol Use History: None Reported Past Drug Use History: None Reported - Past Family History Mother Family Medical History: Cancer Additional Family Medical History / Comment(s): Mother at age 67 from lung cancer. Father Family Medical History: Cancer Additional Family Medical History / Comment(s): Father at age 93 from old age. He was diagnosed with throat cancer at age 75. She does not have any brothers. Patient's 1 sister with no major medical problems. Patient has 3 sons and one daughter with no major medical problems. General Exam Limitations: no limitations General appearance: alert, in no apparent distress Head exam: Present: atraumatic, normocephalic, normal inspection Eye exam: Present: normal appearance, PERRL, EOMI. Absent: scleral icterus, conjunctival injection, periorbital swelling ENT exam: Present: normal exam, mucous membranes moist Neck exam: Present: normal inspection, full ROM. Absent: tenderness, meningismus, lymphadenopathy Respiratory exam: Present: normal lung sounds bilaterally. Absent: respiratory distress, wheezes, rales, rhonchi, stridor Cardiovascular Exam: Present: regular rate, normal rhythm, normal heart sounds. Absent: systolic murmur, diastolic murmur, rubs, gallop, clicks GI/Abdominal exam: Present: soft, normal bowel sounds. Absent: distended, tenderness, guarding, rebound, rigid Neurological exam: Present: alert, oriented X3, CN II-XII intact Psychiatric exam: Present: normal affect, normal mood Course Vital Signs 11/20/19 11/20/19 09:44 13:29 Temperature 97.5 F L Pulse Rate 65 76 Respiratory 20 16 Rate Blood Pressure 134/64 133/76 O2 Sat by Pulse 99 99 Oximetry Medical Decision Making - Medical Decision Making Vitals are stable. Patient is well-appearing. CBC CMP unremarkable. CK D noted. X-ray was obtained which shows few air fluid levels within nondilated small bowel. Findings fever mild small bowel ileus. Dr Tran Discussed this case with Dr. Velasco who is on-call for Dr. Forman. Recommends doing a CAT scan and if that is okay to discharge home. CT abdomen and pelvis without contrast shows fluid-filled prominent small and large bowel loops there is concern for diarrhea. In addition a partial small bowel resection cannot be excluded. There is a rei mesentery appearance and may warrant further clinical workup. On review of the CT there is also a large amount of stool, patient given a glycerin suppository as this is safe in dialysis. Patient is tolerating oral intake. He ate a sandwich and drank juice, actually denying any nausea at all at this time. At this time patient will be discharged home to follow up with primary care. I did discuss however returning to the emergency department if he has worsening symptoms over the weekend. - Lab Data Result diagrams: 11/20/19 10:44 11/20/19 10:44 Lab Results 11/20/19 11/20/19 Range/Units 10:44 10:44 WBC 8.4 (3.8-10.6) k/uL RBC 3.48 L (4.30-5.90) m/uL Hgb 10.8 L (13.0-17.5) gm/dL Hct 33.2 L (39.0-53.0) % MCV 95.4 (80.0-100.0) fL MCH 31.0 (25.0-35.0) pg MCHC 32.5 (31.0-37.0) g/dL RDW 15.7 H (11.5-15.5) % Plt Count 206 (150-450) k/uL Neutrophils % 81 % Lymphocytes % 10 % Monocytes % 6 % Eosinophils % 0 % Basophils % 0 % Neutrophils # 6.8 (1.3-7.7) k/uL Lymphocytes # 0.8 L (1.0-4.8) k/uL Monocytes # 0.5 (0-1.0) k/uL Eosinophils # 0.0 (0-0.7) k/uL Basophils # 0.0 (0-0.2) k/uL Sodium 138 (137-145) mmol/L Potassium 4.7 (3.5-5.1) mmol/L Chloride 91 L (98-107) mmol/L Carbon Dioxide 26 (22-30) mmol/L Anion Gap 21 mmol/L BUN 42 H (9-20) mg/dL Creatinine 5.50 H (0.66-1.25) mg/dL Est GFR (CKD-EPI)AfAm 10 (>60 ml/min/1.73 sqM) Est GFR (CKD-EPI)NonAf 9 (>60 ml/min/1.73 sqM) Glucose 155 H (74-99) mg/dL Calcium 9.1 (8.4-10.2) mg/dL Total Bilirubin 1.3 (0.2-1.3) mg/dL AST 20 (17-59) U/L ALT 11 (4-49) U/L Alkaline Phosphatase 99 (38-126) U/L Total Protein 7.5 (6.3-8.2) g/dL Albumin 4.5 (3.5-5.0) g/dL Amylase 62 (30-110) U/L Lipase 89 (23-300) U/L Disposition Clinical Impression: Nausea & vomiting Disposition: HOME SELF-CARE Condition: Good Instructions (If sedation given, give patient instructions): Acute Nausea and Vomiting (ED) Additional Instructions: Please use glycerin suppository at home. Please follow-up with primary care to milind. If you have worsening symptoms or unable to tolerate oral intake at home return to the emergency department. Is patient prescribed a controlled substance at d/c from ED?: No Referrals: Pernell Forman MD [Primary Care Provider] - 1-2 days Time of Disposition: 13:53
[2019-11-20] MEDS ORDERED: ONDANSETRON 4 MG/2 ML VIAL IVP STA (11:58)
--- NOTE | 2019-11-20 13:16 | CT ---
EXAMINATION TYPE: CT abdomen pelvis wo con DATE OF EXAM: 11/20/2019 HISTORY: Umbilical and pelvic pain with vomiting for [address] DLP: 519.1 mGycm. Automated Exposure Control for Dose Reduction was Utilized. TECHNIQUE: CT scan of the abdomen and pelvis is performed without oral or IV contrast. COMPARISON: NONE FINDINGS: Within the limitations of a non-contrast study, the following observations are made. LUNG BASES: Cardiomegaly. Partial visualization of pacemaker/defibrillator leads. Small to tiny bilat eral pleural effusions with bibasilar linear scarring and/or atelectasis.. LIVER/GB: Liver somewhat small in size. Gallbladder has distended margins without intraluminal CT den se gallstones or surrounding inflammatory change PANCREAS: No significant abnormality is seen. SPLEEN: Single benign-appearing punctate calcification in the spleen spleen identified coronal image 55. ADRENALS: Low dense thickening to both adrenal glands favors benign lipid rich hyperplasia. KIDNEYS: There is diminished size and cortical thinning in both kidneys. In addition there are few sm all scattered simple-appearing renal cysts seen bilaterally. Also there is severe calcified plaque of smaller branch vessels. Findings are consistent with product of chronic or long-standing end-stage r enal disease. BOWEL: Stomach not greatly distended and less suboptimally evaluated. There is slight fluid-filled pr ominence of the duodenal sweep extending into fluid-filled prominent jejunal loops in the left upper to mid abdomen. There are scattered air-fluid levels. Some bowel loops are abnormally dilated measuri ng up to 4.0 cm in diameter. There is severe rectal fecal stasis. There is fluid extending throughout the entire colon short of the rectum. Areas of poor distention mid transverse colon coronal image 14 favor spasm. Terminal ileum is not suspiciously dilated. There is mild central mesenteric edema. Ref erence coronal image 32 extending to right mid and lower abdomen. There are some less prominent fluid -filled small bowel loops in the pelvis. No definitive transition point. No free air. GENITAL ORGANS: No gross abnormality seen. LYMPH NODES: No greater than 1cm abdominal or pelvic lymph nodes are appreciated. Prominent but subce ntimeter lymph nodes throughout the mesentery effect of edema are noted right to mid lower abdomen. OSSEOUS STRUCTURES: Qelsamhn-fv-xzensl disc space narrowing lumbosacral junction. Ttxz-nw-egwjfroy mu ltilevel spurring in the lower thoracic spine. Facet arthropathy mid to lower lumbar levels. OTHER: Moderate calcified plaque of the abdominal aorta with more severe calcified plaque in smaller arterial branch vessels. IMPRESSION: 1. Fluid-filled prominent small and large bowel loops raises concern for diarrhea and/or enterocoliti s. Correlate clinically. In addition a partial small bowel obstruction cannot be excluded. Mirtha mese ntery appearance is seen and may warrant further clinical workup. Evidence of long standing chronic m edical renal disease. At minimum radiographic follow-up is advised.
[2019-11-20] MEDS ORDERED: NA PHOS,M-B/NA PHOS,DI-BA 133 ML ENEMA RECTAL STA (13:40)
[2019-11-20] MEDS ORDERED: GLYCERIN ADULT SUPPOSITORY 1 EACH RECTAL STA (13:51)
[2019-11-20 14:25] VITALS: BP 120/74; PULSE 83; RESP 18
== END 2019-11-20 14:24 | disposition home or self-care (01) ==
LOC: EC 09:41
DX: R11.2 Nausea with vomiting, unspecified (principal); N18.9 Chronic kidney disease, unspecified; R93.5 Abnormal findings on diagnostic imaging of other abdominal regions, including retroperitoneum; R14.3 Flatulence; I48.91 Unspecified atrial fibrillation; I13.0 Hypertensive heart and chronic kidney disease with heart failure and stage 1 through stage 4 chronic kidney disease, or unspecified chronic kidney disease; I50.9 Heart failure, unspecified; E11.22 Type 2 diabetes mellitus with diabetic chronic kidney disease; I25.2 Old myocardial infarction; Z79.01 Long term (current) use of anticoagulants; Z79.52 Long term (current) use of systemic steroids; Z79.82 Long term (current) use of aspirin; Z79.899 Other long term (current) drug therapy; Z99.2 Dependence on renal dialysis; Z95.0 Presence of cardiac pacemaker; Z98.890 Other specified postprocedural states
CPT/HCPCS: 36415; 80053; 82150; 83690; 85025; 74018; 74176; 99284; 96374; J2405

== ENCOUNTER → 2019-11-26 | Outpatient (CLI) | payer MEDICARE ==
--- NOTE | 2019-11-27 07:26 | US ---
EXAMINATION TYPE: US venous doppler duplex UE RT DATE OF EXAM: 11/26/2019 COMPARISON: NONE CLINICAL HISTORY: I74.2 embolism of upper extremity. Has fistula in right arm SIDE PERFORMED: Right Grayscale, color doppler, spectral doppler imaging performed of the deep veins of the right upper ext remity. There is normal flow, compressibility and vascular waveforms. Right Arm: Negative for DVT IMPRESSION: No sonographic evidence of deep venous thrombosis within the right upper extremity.
== END | disposition home or self-care (01) ==
LOC: RADUSMAIN 16:02
PROVIDERS: ATTEND Surgery
DX: I74.2 Embolism and thrombosis of arteries of the upper extremities (principal)

== ENCOUNTER 2020-01-22 13:24 | Emergency (ER) | payer MEDICARE ==
[2020-01-22 14:26] LABS: Basophils # (A) 0.1 k/uL (0-0.2); Basophils % (A) 1 %; Eosinophils # (A) 0.1 k/uL (0-0.7); Eosinophils % (A) 2 %; HCT 31.4 % (39.0-53.0); HGB 10.3 gm/dL (13.0-17.5); Lymphocytes # (A) 1.6 k/uL (1.0-4.8); Lymphocytes % (A) 25 %; MCH 31.6 pg (25.0-35.0); MCHC 32.9 g/dL (31.0-37.0); MCV 96.1 fL (80.0-100.0); Mean Platelet Volume 7.2; Monocytes # (A) 0.4 k/uL (0-1.0); Monocytes % (A) 6 %; Neutrophils % (A) 62 %; Platelet Count 183 k/uL (150-450); RBC 3.26 m/uL (4.30-5.90); RDW 14.1 % (11.5-15.5); WBC 6.4 k/uL (3.8-10.6)
--- NOTE | 2020-01-22 14:34 | ED ---
Fall HPI - General Chief Complaint: Fall Stated Complaint: Fall, Head Lac Time Seen by Provider: 01/22/20 13:50 Source: patient Mode of arrival: wheelchair - History of Present Illness Initial Comments: Patient is an 79-year-old male, with history renal disease on dialysis, heart disease, ICD in place, presenting to emergency Department with complaints of a fall injury just prior to arrival. 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 He states he just lost his balance. He states he may have lost consciousness, he is not sure. Patient is on eliquis for A. fib. Patient has an abrasion to his left forehead with so me swelling as well as a laceration to his left hand. He denies any abdominal pain, chest pain, shortness of breath, lower extremity pain. He states he is only having a mild headache in the front of his head where he hit. He denies any lightheadedness, blurry vision. The did see the patient trying to get up. She does not believe there was loss of consciousness however that is unknown. There are no other complaints at this time. Upon arrival to the ER, his vital signs are stable. - Related Data Home Medications Medication Instructions Recorded Confirmed Omeprazole 20 mg PO DAILY 10/19/18 06/03/19 Apixaban [Eliquis] 2.5 mg PO BID 06/03/19 06/03/19 Aspirin EC [Ecotrin Low Dose] 81 mg PO DAILY 06/03/19 06/03/19 Calcium Acetate [PhosLo] 1,334 mg PO QAM 06/03/19 06/03/19 Calcium Acetate [PhosLo] 667 mg PO BID 06/03/19 06/03/19 Cinacalcet HCl [Sensipar] 60 mg PO HS 06/03/19 06/03/19 Fludrocortisone [Florinef] 0.05 mg PO DAILY 06/03/19 06/03/19 Pravastatin Sodium [Pravachol] 20 mg PO HS 06/03/19 06/03/19 Renal Vitamin 1 tab PO HS 06/03/19 06/03/19 Previous Rx's Medication Instructions Recorded Darbepoetin Larry [Aranesp] 40 mcg SQ Q7D syringe 06/07/19 Metoprolol Succinate (ER) [Toprol 50 mg PO QAM tab.er.24h 06/07/19 XL] Midodrine [ProAmatine] 10 mg PO AC-TID #90 tab 06/07/19 Allergies Allergy/AdvReac Type Severity Reaction Status Date / Time No Known Allergies Allergy Verified 11/20/19 09:46 Review of Systems ROS Statement: Those systems with pertinent positive or pertinent negative responses have been documented in the HPI. ROS Other: All systems not noted in ROS Statement are negative. Past Medical History Past Medical History: Atrial Fibrillation, Heart Failure, Diabetes Mellitus, Dialysis, Hypertension, Myocardial Infarction ([place]), Renal Disease, Skin Disorder, Syncope Additional Past Medical History / Comment(s): CMP, HAS PACEMAKER. NO RX FOR DM NOW. HEMODIALYSIS VIA FISTULA, SUN, SUN, SUN. SKIN TEARS EASILY. 10/19/18 TO EC R/T SYNCOPAL EPISODE, INJURY/LACERATION TO HEAD. SEE DR SANDHU'S H&P. Last Myocardial Infarction Date:: 2017 History of Any Multi-Drug Resistant Organisms: None Reported Past Surgical History: Pacemaker Additional Past Surgical History / Comment(s): 2 ABD SURGERIES R/T INJ. PACEMAKER ICD [employer]ONIC. FISTULA. Patient has a Medtronic ICD implanted November 2018 Past Anesthesia/Blood Transfusion Reactions: No Reported Reaction Type of Cardiac Device: Permanent Pacemaker Device Placement Date:: 10/10/12 Past Psychological History: Anxiety Smoking Status: Never smoker Past Alcohol Use History: None Reported Past Drug Use History: None Reported - Past Family History Mother Family Medical History: Cancer Additional Family Medical History / Comment(s): Mother at age 67 from lung cancer. Father Family Medical History: Cancer Additional Family Medical History / Comment(s): Father at age 93 from old age. He was diagnosed with throat cancer at age 75. She does not have any brothers. Patient's 1 sister with no major medical problems. Patient has 3 sons and one daughter with no major medical problems. General Exam - General Exam Comments Initial Comments: GENERAL: Well-appearing, well-nourished and in no acute distress. HEAD: Hematoma to the left forehead, with abrasion. No active bleeding. EYES: Pupils equal round and reactive to light, extraocular movements intact, sclera anicteric, conjunctiva are normal. ENT: TMs normal, nares patent, oropharynx clear without exudates. Moist mucous membranes. NECK: Normal range of motion, supple without lymphadenopathy or JVD. LUNGS: Breath sounds clear to auscultation bilaterally and equal. No wheezes rales or rhonchi. HEART: Regular rate and rhythm without murmurs, rubs or gallops. ABDOMEN: Soft, nontender, normoactive bowel sounds. No guarding, no rebound. No masses appreciated. : Deferred EXTREMITIES: Patient has full range of motion of his left hand including full finger extension and flexion. He states he has no pain around the wound. Patient has full range of motion of his lower extremities, no pain in his pelvis. She has full shoulder range of motion. He is neurovascular intact. No clubbing or cyanosis. NEUROLOGICAL: Cranial nerves II through XII grossly intact. Normal speech, normal gait. PSYCH: Normal mood, normal affect. SKIN: Warm, Dry, normal turgor. Patient has a large laceration, V-shaped proximally 5 cm in length, skin avulsion to the left and, dorsal aspect over second metacarpal. There is mild bleeding at this time which is controlled with a bandage. Also a small skin tear on the left lateral elbow. Bleeding is controlled at this time. Limitations: no limitations Course Vital Signs 01/22/20 01/22/20 01/22/20 13:28 14:44 15:41 Temperature 97.4 F L Pulse Rate 62 56 L 54 L Respiratory 18 16 16 Rate Blood Pressure 154/66 133/32 150/97 O2 Sat by Pulse 99 99 96 Oximetry 01/22/20 16:54 Temperature 98.0 F Pulse Rate 57 L Respiratory 16 Rate Blood Pressure 168/72 O2 Sat by Pulse 99 Oximetry Procedures - Laceration Laceration #1 Consent Obtained: verbal consent Indication: laceration Site: hand (left hand) Size (cm): 4 Description: flap, avulsion Depth: simple, single layer Additional Comments: Patient's skin is too thin for sutures. Wound was cleaned with 1 L of sterile water. Steri-Strips were applied to hold the edges approximate. It bandage was applied over the wound. Bleeding is very minimal at this time. Medical Decision Making - Medical Decision Making Patient is an 79-year-old male presenting for a fall, possible syncopal episode just prior to arrival. His vitals are stable. On exam patient has an abrasion and hematoma to his left forehead along with a large laceration, skin avulsion to the left hand. This was cleaned and closed with Steri-Strips and bandage. He has no red flag symptoms. No neuro deficits. Head and neck computed tomography scan showed no abnormalities. X-ray of the left hand shows no acute abnormalities. Chest x-ray is normal as well. Kidney function is stable. Troponin came back elevated at 0.046. Given patient's possible syncopal episode as well as elevated troponin. I recommended patient to be admitted for ACS workup. Case was discussed with Dr. Eller who agreed with this. Dr. Eller contacted Dr. Christy who also recommended admission. I discussed this with the patient. He adamantly declines admission at this time and is requesting discharge. He will leave AMA. He states he will follow up with his PCP tomorrow. Return parameters were discussed with the patient he verbalizes understanding. - Lab Data Result diagrams: 01/22/20 14:09 01/22/20 14:09 Lab Results 01/22/20 01/22/20 01/22/20 Range/Units 14:09 14:09 14:09 WBC 6.4 (3.8-10.6) k/uL RBC 3.26 L (4.30-5.90) m/uL Hgb 10.3 L (13.0-17.5) gm/dL Hct 31.4 L (39.0-53.0) % MCV 96.1 (80.0-100.0) fL MCH 31.6 (25.0-35.0) pg MCHC 32.9 (31.0-37.0) g/dL RDW 14.1 (11.5-15.5) % Plt Count 183 (150-450) k/uL Neutrophils % 62 % Lymphocytes % 25 % Monocytes % 6 % Eosinophils % 2 % Basophils % 1 % Neutrophils # 4.0 (1.3-7.7) k/uL Lymphocytes # 1.6 (1.0-4.8) k/uL Monocytes # 0.4 (0-1.0) k/uL Eosinophils # 0.1 (0-0.7) k/uL Basophils # 0.1 (0-0.2) k/uL PT 11.3 (9.0-12.0) sec INR 1.1 (<1.2) APTT 27.1 (22.0-30.0) sec Sodium 138 (137-145) mmol/L Potassium 4.0 (3.5-5.1) mmol/L Chloride 99 (98-107) mmol/L Carbon Dioxide 22 (22-30) mmol/L Anion Gap 17 mmol/L BUN 40 H (9-20) mg/dL Creatinine 5.37 H (0.66-1.25) mg/dL Est GFR (CKD-EPI)AfAm 11 (>60 ml/min/1.73 sqM) Est GFR (CKD-EPI)NonAf 9 (>60 ml/min/1.73 sqM) Glucose 140 H (74-99) mg/dL Calcium 8.2 L (8.4-10.2) mg/dL Total Bilirubin 0.7 (0.2-1.3) mg/dL AST 23 (17-59) U/L ALT 12 (4-49) U/L Alkaline Phosphatase 83 (38-126) U/L Troponin I (0.000-0.034) ng/mL Total Protein 7.2 (6.3-8.2) g/dL Albumin 4.5 (3.5-5.0) g/dL 01/22/20 Range/Units 14:09 WBC (3.8-10.6) k/uL RBC (4.30-5.90) m/uL Hgb (13.0-17.5) gm/dL Hct (39.0-53.0) % MCV (80.0-100.0) fL MCH (25.0-35.0) pg MCHC (31.0-37.0) g/dL RDW (11.5-15.5) % Plt Count (150-450) k/uL Neutrophils % % Lymphocytes % % Monocytes % % Eosinophils % % Basophils % % Neutrophils # (1.3-7.7) k/uL Lymphocytes # (1.0-4.8) k/uL Monocytes # (0-1.0) k/uL Eosinophils # (0-0.7) k/uL Basophils # (0-0.2) k/uL PT (9.0-12.0) sec INR (<1.2) APTT (22.0-30.0) sec Sodium (137-145) mmol/L Potassium (3.5-5.1) mmol/L Chloride (98-107) mmol/L Carbon Dioxide (22-30) mmol/L Anion Gap mmol/L BUN (9-20) mg/dL Creatinine (0.66-1.25) mg/dL Est GFR (CKD-EPI)AfAm (>60 ml/min/1.73 sqM) Est GFR (CKD-EPI)NonAf (>60 ml/min/1.73 sqM) Glucose (74-99) mg/dL Calcium (8.4-10.2) mg/dL Total Bilirubin (0.2-1.3) mg/dL AST (17-59) U/L ALT (4-49) U/L Alkaline Phosphatase (38-126) U/L Troponin I 0.046 H* (0.000-0.034) ng/mL Total Protein (6.3-8.2) g/dL Albumin (3.5-5.0) g/dL - EKG Data EKG Comments: Ventricular rate 60, QRS 148, QTc 546. Ventricular paced rhythm. No acute changes. Disposition Clinical Impression: Fall, Traumatic hematoma of forehead, Laceration of left hand Disposition: Left Against Medical Advice Condition: Stable Instructions (If sedation given, give patient instructions): Fall Prevention for Older Adults (ED) Additional Instructions: Please return to the Emergency Department if symptoms worsen or any other concerns. Follow-up with Dr. Forman's office as discussed. Keep dressings clean and dry. Applied topical antibiotic once a day. May wash with mild soap and water once a day. Is patient prescribed a controlled substance at d/c from ED?: No Referrals: Pernell Forman MD [Primary Care Provider] - 1-2 days
[2020-01-22 14:37] LABS: INR 1.1 (<1.2); Partial Thromboplastin Time 27.1 sec (22.0-30.0); Prothrombin Time 11.3 sec (9.0-12.0)
[2020-01-22 14:41] LABS: Albumin 4.5 g/dL (3.5-5.0); Calcium 8.2 mg/dL (8.4-10.2); Total Bilirubin 0.7 mg/dL (0.2-1.3); Total Protein 7.2 g/dL (6.3-8.2)
--- NOTE | 2020-01-22 14:41 | XR ---
EXAMINATION TYPE: XR chest 2V DATE OF EXAM: 01/22/2020 COMPARISON: 06/05/2019 HISTORY: Syncope and fall TECHNIQUE: Frontal and lateral views of the chest are obtained. FINDINGS: Improving left pleural effusion is now trace with minimal left basilar airspace disease. V ague nodular densities in the right lower lunge. Underlying COPD with biapical lucency. The cardiac silhouette size is mildly enlarged with multilead left-sided cardiac device. The osseous structures are intact. IMPRESSION: 1. Improving left pleural effusion and associated left basilar airspace disease, likely atelectasis. 2. Vague nodular densities in the right lower lung. Nonemergent follow-up chest CT is recommended to exclude pulmonary nodule. 3. Radiographic sequela of COPD.
--- NOTE | 2020-01-22 14:43 | XR ---
EXAMINATION TYPE: XR hand complete LT DATE OF EXAM: 01/22/2020 CLINICAL HISTORY: Left hand lacerations after fall and left hand pain TECHNIQUE: Frontal, lateral and oblique images of the left hand are obtained. COMPARISON: None. FINDINGS: There is no acute fracture/dislocation evident in the left hand. There is diffuse osseous demineralization of the left hand and small vessel atherosclerosis. There is dorsal cause over the me tacarpals without internal radiopaque foreign body seen. No significant radiographic soft tissue swel ling. Mild osteophytic spurring of the third and fourth distal interphalangeal joints. IMPRESSION: There is no acute fracture or dislocation in the left hand.
[2020-01-22 14:45] VITALS: RESP 16
--- NOTE | 2020-01-22 14:50 | CT ---
EXAMINATION TYPE: CT brain cspine wo con DATE OF EXAM: 01/22/2020 COMPARISON: CT brain and cervical spine December 20, 2017. HISTORY: Fall with head injury and neck pain. CT DLP: 1385.4 mGycm. Automated Exposure Control for Dose Reduction was Utilized. TECHNIQUE: CT scan of the head and cervical spine are performed without contrast. FINDINGS: There is no acute intracranial hemorrhage or midline shift identified. Diffuse ventricula r and sulcal prominence. Fairly moderate sized acute left frontal scalp hematoma axial image 25. The globes are intact and the visualized sinuses are clear. The calvarium is intact. Cervical spine is visualized in its entirety from C1 through upper thoracic levels and redemonstrates levoconvex scoliosis centered C5-C6 level without evidence of acute fracture or dislocation. Prever tebral soft tissue appears within normal limits. The C1-C2 articulation is within normal limits on t he coronal images. Vertebral body heights are maintained. Moderate disc space narrowing C3-C4 through the C7-T1 levels with posterior spur disc complex effacing the anterior thecal sac at C4-C5 level. E ndplate sclerosis with scattered subchondral cysts and prominent Schmorl node involving the superior C7 endplate and inferior C6 endplate is redemonstrated. Spinal canal grossly preserved. Review of axi al images shows multilevel uncovertebral facet degenerative changes contributing to multilevel neural foraminal narrowing. There is [id number] biapical pleural/parenchymal scarring. IMPRESSION: 1. There is no acute fracture or dislocation evident in the cervical spine. Multilevel degenerative c hanges are redemonstrated. 2. No acute intracranial hemorrhage or shift is seen. [id number] diffuse cerebral atrophy and c hronic small vessel ischemic changes redemonstrated with new moderate sized acute left frontal scalp hematoma noted.
[2020-01-22] MEDS ORDERED: LIDOCAINE 1% INJ 10MG/ML (20 ML MDV) SQ ONE (14:52)
[2020-01-22 16:58] VITALS: BP 168/72; PULSE 57; TEMP 98
== END 2020-01-22 16:54 | disposition left against medical advice (07) ==
LOC: EC 13:24
DX: S61.412A Laceration without foreign body of left hand, initial encounter (principal); S00.83XA Contusion of other part of head, initial encounter; S51.012A Laceration without foreign body of left elbow, initial encounter; R79.89 Other specified abnormal findings of blood chemistry; I48.91 Unspecified atrial fibrillation; I11.0 Hypertensive heart disease with heart failure; I50.9 Heart failure, unspecified; I25.2 Old myocardial infarction; Z79.01 Long term (current) use of anticoagulants; Z79.52 Long term (current) use of systemic steroids; Z79.82 Long term (current) use of aspirin; Z79.899 Other long term (current) drug therapy; Z95.0 Presence of cardiac pacemaker; Z87.448 Personal history of other diseases of urinary system; Z99.2 Dependence on renal dialysis; W01.0XXA Fall on same level from slipping, tripping and stumbling without subsequent striking against object, initial encounter; Y93.89 Activity, other specified; Y92.89 Other specified places as the place of occurrence of the external cause; Z53.20 Procedure and treatment not carried out because of patient's decision for unspecified reasons
CPT/HCPCS: 36415; 93005; 80053; 84484; 85025; 85610; 85730; 73130; 71046; 72125; 70450; 99284; J2001